=== PATIENT | female | born 1950 | race Caucasian/White ===

== ENCOUNTER → 2016-11-16 | Outpatient (REF) | payer MEDICARE | LOC: M LAB REF 16:58 | PROVIDERS: ATTEND Internal Medicine | DX: R07.9 Chest pain, unspecified (principal) ==

== ENCOUNTER → 2017-04-09 | Outpatient (REF) | payer MEDICARE | LOC: M LAB REF 17:32 | PROVIDERS: ATTEND Internal Medicine | DX: N18.9 Chronic kidney disease, unspecified (principal) ==

== ENCOUNTER → 2017-06-09 | Outpatient (REF) | payer MEDICARE | LOC: M LAB REF 12:29 | PROVIDERS: ATTEND Internal Medicine | DX: E78.5 Hyperlipidemia, unspecified (principal) ==

== ENCOUNTER → 2018-07-26 | Outpatient (REF) | payer MEDICARE ==
[2018-07-28 08:06] LABS: LDL DIRECT 149 mg/dL (0-99)
== END ==
LOC: M LAB REF 16:35
DX: E78.5 Hyperlipidemia, unspecified (principal)
CPT/HCPCS: 83721

== ENCOUNTER → 2018-12-19 | Outpatient (REF) | payer MEDICARE ==
[2018-12-19 18:40] LABS: PERCENT SATURATION 15.6 % (13.2-45.0)
== END ==
LOC: M LAB REF 18:00
PROVIDERS: ATTEND Internal Medicine
DX: D64.9 Anemia, unspecified (principal)

== ENCOUNTER → 2019-04-11 | Outpatient (CLI) | payer MEDICARE ==
[~2019-04-11] MED LIST: ASPI81TA26 PO; COQ150CH PO; CORE12.5 PO; CRES10TA PO; CVS400CA PO; GLIM4TAB PO; INVO100T PO; IRON325T9 PO; LASI40TA9 PO; LOSA50TA88 PO; METF500T13 PO; OCUV1CAP4 PO; PLAV1TAB2 PO; SPIR-10 PO; TOUJ300I2 SC; TRUL10IN SC
--- NOTE | 2019-04-11 18:17 | REP ---
BILATERAL LOWER EXTREMITY ARTERIAL DOPPLER ULTRASOUND: 04/11/2019. Clinical history: Pain and swelling, peripheral vascular disease. Findings: The ALFREDITO on the right is 0.65. On the left is 1.0. CLINIC CLERK is occluded on the right. Right lower extremity: PSV Phasicity Common femoral: 76.4 cm/S monophasic Profunda: 76 cm/S monophasic SFA proximal: 32.5 cm/S monophasic SFA mid: 14.9 cm/S monophasic SFA distal: 55.8 cm/S monophasic Popliteal: 34.2 cm/S monophasic TONY proximal: 27.3 cm/S monophasic Tibioperoneal trunk: 39.6 cm/S monophasic CLINIC CLERK proximal: 28.6 cm/S monophasic CLINIC CLERK distal: Occluded. AT distal: 34.7 cm/S monophasic Left lower extremity: PSV Phasicity Common femoral: 133.9 cm/S monophasic Profunda: 98.3 cm/S monophasic SFA proximal: 135.5 cm/S triphasic SFA mid: 161 cm/S triphasic SFA distal: 87.3 cm/S triphasic Popliteal: 116.8 cm/S triphasic TONY proximal: 66.1 cm/S triphasic Tibioperoneal trunk: 108.8 cm/S triphasic CLINIC CLERK proximal: 95.2 cm/S triphasic CLINIC CLERK distal: 66.3 cm/S. triphasic AT distal: 94.5 cm/S monophasic The right lower extremity is entirely monophasic, the right mid SFA/distal SFA are occluded with collateral revascularization noted. The distal CLINIC CLERK is also occluded. There is monophasic flow in the left common femoral artery with the distal SFA occluded with collateral revascularization. The common and external iliac arteries cannot be evaluated well due to body habitus and bowel gas. Electronically Signed by Jonathon Westbrook MD 04/11/2019 06:08 P
== END ==
LOC: M RAD 12:32
PROVIDERS: ATTEND Internal Medicine
DX: M79.606 Pain in leg, unspecified (principal); R22.43 Localized swelling, mass and lump, lower limb, bilateral; I70.213 Atherosclerosis of native arteries of extremities with intermittent claudication, bilateral legs

== ENCOUNTER → 2019-05-16 | Outpatient (CLI) | payer MEDICARE ==
[~2019-05-16] MED LIST changes: +CLOPIDOGREL 75 MG TAB As Ordered ONE; +HEPARIN 1,000 UNITS/ML 10ML VIAL (FOR RADIOLOGY& DIALYSIS ONLY) As Ordered ONE; +ISOVUE-300 61% 50ML VIAL (Q9967) As Ordered ONE; +LIDOCAINE 1% MDV 20ML VIAL As Ordered ONE; +MIDAZOLAM INJ 2 MG/2 ML VIAL (J2250) As Ordered ONE; +fentaNYL 100 MCG/2 ML INJECTION (J3010) As Ordered ONE
[2019-05-16 08:23] LABS: HEMATOCRIT 35.4 % (36.0-47.0); MEAN CORPUSCULAR HGB CONC 33.9 g/dl (32.0-36.5); MEAN CORPUSCULAR VOLUME 88.5 fl (80.0-96.0); PLATELET COUNT, AUTOMATED 182 10^3/uL (150-450); WHITE BLOOD COUNT 8.7 10^3/uL (4.0-10.0)
[2019-05-16 08:51] LABS: BILIRUBIN,TOTAL 0.4 MG/DL (0.2-1.0); CALCIUM LEVEL 9.9 MG/DL (8.8-10.2); CREATININE FOR GFR 1.8 MG/DL (0.55-1.30); GLOMERULAR FILTRATION RATE 29.5 (>39); POTASSIUM SERUM 4.3 MEQ/L (3.5-5.1); TOTAL PROTEIN 7.7 GM/DL (6.4-8.2)
--- NOTE | 2019-05-16 11:04 | ROOPDOC ---
[facility] Report Of Operation Report of Operation DATE OF PROCEDURE: 05/16/19 PREPROCEDURE DIAGNOSES: Atherosclerosis of the rosebud vessels with lifestyle limiting claudication POSTPROCEDURE DIAGNOSES: Same PROCEDURE: 1. Ultrasound-guided access left common femoral artery 2. Aortoiliofemoral arteriogram with right lower extremity runoff 3. Selection of distal popliteal artery and distal posterior tibial artery with arteriogram 4. Cross chronic total occlusion right superficial femoral artery and angioplasty right superficial femoral artery and proximal popliteal artery with 5 x 200 [place] balloon 5. Stenting of the superficial femoral artery with 6 x 100 and 6 x 150 Innova stents and post-dilation with 5 x 200 [place] balloon 6. Angioplasty proximal anterior tibial artery with 3 x 40 Gianni balloon 2 7. Cross chronic total occlusion right posterior tibial artery and angioplasty with 2 x 220 Gianni balloon 8. Completion arteriograms 9. Mynx closure left common femoral artery SURGEON: Brittany Dudley MD ANESTHESIA: 15 mL lidocaine local anesthesia. Moderate intravenous conscious sedation was supervised by Dr. Dudley. The patient was independently monitored by registered nurse assigned to the Department of radiology using automated blood pressure, EKG, and pulse oximetry. The detail conscious sedation record is probably started in the hospital information system. The following is the conscious sedation record: Start time 08:57, stop time 10:29, Versed 1.5 mg IV, fentanyl 25 g IV, heparin 5000 units IV. CONTRAST: 62 mL Isovue 300 INDICATION FOR PROCEDURE: Ms. Urena is a very pleasant 69-year-old patient with lifestyle limiting claudication and peripheral vascular disease. Her recent noninvasive arterial duplex revealed bilateral lower extremity PVD, worse on the right. Risks benefits and alternatives to an arteriogram with potential interv ention as well as sedation were explained at length to the patient and her . Informed consent was obtained. INTERPRETATION: 1. The aortoiliac segment are widely patent with brisk inflow to the lower extremities. 2. The bilateral common femoral arteries and profundus are widely patent at the origins. 3. In the right lower extremity, the SFA is patent proximally for several c entimeters, but quickly narrows and tapers and is occluded in the mid thigh with some trickle flow and the majority of the filling below Avlentin's canal is from collaterals. The popliteal proximally has some areas of focal stenosis of about 50%, but is not occluded. Distal to that, the popliteal is widely patent and runs off primarily through the anterior tibial and peroneal arteries. The proximal anterior tibial artery has a 70% focal stenosis and some 50% narrowing for about a centimeter distal to that. The rest of the anterior tibial artery appears widely patent. The peroneal artery is widely patent throughout its flow. The posterior tibial artery is patent proximally but then includes in the upper thigh and does not reconstitute distally until distal to the ankle through collateral circulation. 4. After crossing the occlusion in the right superficial femoral artery, we performed a quick arteriogram at the popliteal artery to confirm we were in the true lumen. Angioplasty significantly improved flow, but there were several areas of flow-limiting bulky plaque and a few small dissections. Additional angioplasty did not improve this, therefore the area was stented and post- dilated with widely patent flow following the stents. After angioplasty and stenting, no embolization, extravasation, or dissections were noted. 5. There was less than 20% residual stenosis at the origin of the anterior tibial artery after angioplasty. 6. After crossing the occlusion in the right posterior tibial artery, and confirming flow in the distal posterior tibial artery with a quick arteriogram at the ankle, there was widely patent flow throughout the posterior tibial artery after angioplasty. There was no dissection, embolization, or extravasation. 7. Following all interventions, the patient had in-line flow through the femoral vessels, popliteal vessels, and all 3 tibial vessels to the foot. 8. The Mynx closure device was deployed under fluoroscopic guidance with good hemostasis. PROCEDURE: The patient was brought to the angiographic suite in stable condition. She was placed supine on the fluoroscopic table. Her bilateral groins were prepped and draped in a sterile fashion. A timeout was performed. Sedation was administered without complication. Local anesthesia was administered to the skin and subcutaneous tissue over the left common femoral artery and a microneedle was used to access the artery under ultrasound guidance. A wire was passed through this access and the needle was removed. A small incision was made at the access site with the skin knife and a micro-sheath was placed over the wire using a Seldinger technique. The inner cannula and wire were removed and a Glidewire was advanced through the micro-sheath into the aorta under fluoroscopic guidance. We then removed the sheath was exchanged for a short 6 Uzbek sheath. This was flushed with saline. An Omni flushed catheter was advanced over the wire into the distal aorta and the wire was removed. An aortoiliofemoral arteriogram was performed and there was widely patent flow through the proximal segments. We then went up and over the bifurcation with the catheter in the Glidewire until the catheter was in the proximal common femoral artery. Arteriogram from this access showed widely patent flow through the common femoral artery and profunda, with good collateralization from the profunda to the distal SFA and popliteal artery, but the SFA although patent pro ximally, tapers down and includes in the mid thigh and is a long chronic total occlusion with some intermittent reconstitution from collateralization. There is some stenoses noted in the proximal popliteal artery as well, the distal popliteal artery however is widely patent. We then noted a stenosis at the origin of the anterior tibial artery and a chronic total occlusion of the ma jority of the distal posterior tibial artery. Following this, we exchanged her sheath for 45 cm destination 6 Uzbek sheath and flushed the sheath with saline. We then carefully navigated a Glidewire and Gleich cath through the occlusion in the superficial femoral artery. This took a bit of time, but we were eventually able to cross into the distal popliteal artery. A quick arteriogram from this access showed that we were in the true lumen and no distal embolization had occurred. We then angioplastied with a 5 x 200 [place] balloon along the length of the superficial femoral artery as well as the proximal popliteal artery for three-minute inflations. Following this, there was still some small areas of dissection as well as some bulky plaque that was flow-limiting. An additional three-minute angioplasty did not improve this, so we selected a 6 x 150 and 6 x 100 and Innova stents and these were placed from the origin of the SFA to the distal superficial femoral artery just proximal to Valentin's canal. They were postdilated with 5 x 200 [place] balloon, and there was widely patent flow following this with no distal embolization no extravasation and no ongoing dissection present. We then utilized the [place] cath and Glidewire to access the anterior tibial artery and exchanged through the Gleich cath for a 300 V 18 wire. Over the wire, we placed a 3 x 40 Gianni balloon and a three-minute in flation was performed, and following this there is still some residual stenosis so a second three-minute inflation was performed. Following this, there was less than 20% residual stenosis and no flow limitation into the anterior tibial artery. The distal artery was all widely patent. We then utilized the Gleich cath in the V 18 wire to access the posterior tibial artery. A bit of time was taken to cross through the chronic total occlusion and the posterior tibial artery but eventually I was able to cross to the ankle. I then performed a quick arteriogram from the ankle access to confirm I was in the true lumen, and then we did a three-minute inflation along the length of the posterior tibial artery 2 with a 2 x 2 120 Gianni balloon. Following this, there was widely patent 3 vessel runoff to the foot with no embolization, extravasation, or dissection noted. This concluded her procedure. We then exchange the sheath over a Glidewire for a short 6 Uzbek sheath in the left groin. This was flushed with saline. The wire was removed and a Mincks closure device was advanced into the common femoral artery. The Mincks was deployed with good hemostasis and pressure was held for 5 minutes following this and the patient was then taken to recovery in stable condition. ESTIMATED BLOOD LOSS: Approximately 5 mL. COMPLICATIONS: None PLAN: The patient will be monitored for 4 hours postprocedure and discharge home if stable condition after 4 hours of bedrest. She will have a Plavix in recovery, 75 mg, and then resume her home dose of Plavix in the morning. We will see her back for follow-up in clinic within a week. Depending on her clinical status, we may set up arteriogram for the left lower extremity, but due to creatinine of 1.8 today, we did not want to give additional contrast to do an arteriogram for the left lower extremity. The patient was hydrated pre-, during, and postprocedure with normal saline IV. BRITTANY DUDLEY MD May 16, 2019 11:04
[2019-05-16 14:41] VITALS: BP 142/66
== END ==
LOC: M IRPRO 07:56
PROVIDERS: ATTEND Surgery Vascular Surgery
DX: I70.211 Atherosclerosis of native arteries of extremities with intermittent claudication, right leg (principal)
CPT/HCPCS: 37226; 37228; 37232; 75716; 75774; 80053; 85027; 99152; 99153; C1725; C1760; C1769; C1876; C1887; C1894; J2250; J3010; Q9967

== ENCOUNTER → 2019-05-30 | Outpatient (CLI) | payer MEDICARE ==
[~2019-05-30] MED LIST changes: -CLOPIDOGREL 75 MG TAB As Ordered ONE; -HEPARIN 1,000 UNITS/ML 10ML VIAL (FOR RADIOLOGY& DIALYSIS ONLY) As Ordered ONE; -ISOVUE-300 61% 50ML VIAL (Q9967) As Ordered ONE; -LIDOCAINE 1% MDV 20ML VIAL As Ordered ONE; -MIDAZOLAM INJ 2 MG/2 ML VIAL (J2250) As Ordered ONE; -fentaNYL 100 MCG/2 ML INJECTION (J3010) As Ordered ONE
--- NOTE | 2019-05-30 16:17 | REP ---
BILATERAL LOWER EXTREMITY DUPLEX DOPPLER ARTERIAL ULTRASOUND: Real-time ultrasound evaluation and duplex Doppler interrogation of bilateral lower extremity arterial systems is performed. ALFREDITO right 1.2 and left 1.1. Biphasic and triphasic waveforms are seen diffusely bilaterally except for monophasic waveforms in the distal right anterior and posterior tibial arteries. Normal flow velocities are seen diffusely bilaterally. Phasicity in the proximal posterior tibial arteries cannot be determined due to edema. Right PSV Left PSV CONFERENCE ASSISTANT 110.5 cm/s 132 cm/s Profunda 45.4 cm/s 46.7 cm/s Proximal SFA 77.3 cm/s 107.4 cm/s Mid SFA 87.9 cm/s 95.7 cm/s Distal SFA 68.8 cm/s 76.5 cm/s Popliteal 62.4 cm/s 69.6 cm/s Proximal TONY 46.6 cm/s 45.4 cm/s Tibial peroneal trunk 98.7 cm/s 66.1 cm/s Proximal NAIL KEGGER 29.6 cm/s 35.9 cm/s Distal NAIL KEGGER 61.1 cm/s 58.8 cm/s Distal TONY 83.6 cm/s 75.3 cm/s Patent arterial stent is seen in the proximal to mid right superficial femoral artery. Electronically Signed by Sushant Olivas MD 05/31/2019 04:30 P
== END ==
LOC: M RAD 12:21
PROVIDERS: ATTEND Surgery Vascular Surgery
DX: I70.213 Atherosclerosis of native arteries of extremities with intermittent claudication, bilateral legs (principal)

== ENCOUNTER → 2019-09-28 | Outpatient (CLI) | payer MEDICARE ==
[~2019-09-28] MED LIST changes: -GLIM4TAB PO; +GLIM4TAB5 PO
--- NOTE | 2019-09-28 15:48 | REP ---
Bilateral lower extremity arterial Doppler ultrasound: Right lower extremity: Brachial artery peak systole: 160 mmHg Dorsalis pedis peak systole: 150 mmHg. MIDDLE SCHOOL FOOTBALL COACH peak systole: 150 mmHg. ALFREDITO: 0.9 Peak Systolic Phasicity Velocity PROJECT MANAGEMENT INSTRUCTOR 91.4 biphasic Profunda 89.4 triphasic SFA prox 169 triphasic SFA mid 241 triphasic SFA dist 191 triphasic Pop 65.9 triphasic TONY prox 48.1 triphasic Tib/P tr 77.9 triphasic MIDDLE SCHOOL FOOTBALL COACH pr 41.7 monophasic MIDDLE SCHOOL FOOTBALL COACH dst 191 monophasic TONY dst 400 monophasic Left lower extremity: Brachial artery peak systole: 165 mmHg. Dorsalis pedis peak systole: 155 mmHg. MIDDLE SCHOOL FOOTBALL COACH peak systole: 160 mmHg. ALFREDITO: 0.9. Peak Systolic Phasicity Velocity PROJECT MANAGEMENT INSTRUCTOR the 116 triphasic Profunda 61.6 biphasic SFA prox 151 triphasic SFA mid 186 triphasic SFA dist 108 triphasic Pop 101 triphasic TONY prox 48.1 triphasic Tib/P tr 101 biphasic MIDDLE SCHOOL FOOTBALL COACH pr 49.9 triphasic MIDDLE SCHOOL FOOTBALL COACH dst 78.5 biphasic TONY dst 76.5 biphasic There are multiple stenoses in the right SFA from proximal to distal, however, there are triphasic waveforms. There are triphasic waveforms from the right popliteal to the tibioperoneal trunk. There are monophasic waveforms in the right MIDDLE SCHOOL FOOTBALL COACH and TONY. The there are no significant stenoses on the left. There are biphasic/triphasic waveforms throughout. Electronically Signed by Sushant Vallejo MD 09/28/2019 03:39 P
== END ==
LOC: M RAD 13:28
PROVIDERS: ATTEND Surgery Vascular Surgery
DX: I70.213 Atherosclerosis of native arteries of extremities with intermittent claudication, bilateral legs (principal); I70.203 Unspecified atherosclerosis of native arteries of extremities, bilateral legs

== ENCOUNTER → 2019-10-16 | Outpatient (REF) | payer MEDICARE | LOC: M LAB REF 16:11 | PROVIDERS: ATTEND Internal Medicine | DX: R10.32 Left lower quadrant pain (principal) ==

== ENCOUNTER → 2020-04-18 | Outpatient (CLI) | payer MEDICARE ==
--- NOTE | 2020-05-21 07:18 | REP ---
BILATERAL LOWER EXREMITY ARTERIAL DOPPLER ULTRASOUND HISTORY: Unspecified atherosclerosis of the [place] arteries of the extremities. On 05/16/2019, the patient underwent angioplasty of the right superficial femoral artery and proximal popliteal artery, stenting of the right superficial femoral artery, angioplasty of the proximal anterior tibial artery. FINDINGS: Ankle brachial indices could not be accomplished due to noncompressible vessels. There is severe plaquing throughout bilaterally. Monophasic waveforms are noted throughout most of the right lower extremity and in the left lower extremity at and distal to the tibioperoneal trunk. Two stents can be seen in the right superficial femoral and mid superficial femoral artery and at the distal superficial femoral artery. Stenosis is visible at the right superficial femoral artery origin with a 3.421 velocity ratio. A 2.2 to 1 velocity ratio of stenosis is seen in the mid SFA on the right and another in the mid SFA on the left. PSV RIGHT (cm/s) PSV LEFT (cm/s) ELEVATOR REPAIRER HELPER 110/96 154 Profunda 84 104 Proximal SFA 200/326 136 Mid-SFA 172/372 150/301 Distal SFA 101 113 Popliteal 82 111 Proximal TONY 43 114 Tibioperoneal trunk 56 58 Proximal METER SETTER 47 57 Distal METER SETTER 89/144 123 Distal TONY 62 57 MTDD
== END ==
LOC: M RAD 10:31
PROVIDERS: ATTEND Physician Assistant
DX: I70.211 Atherosclerosis of native arteries of extremities with intermittent claudication, right leg (principal)

== ENCOUNTER → 2020-06-13 | Outpatient (REF) | payer MEDICARE ==
[2020-06-13 18:28] LABS: FERRITIN 291 NG/ML (8-252); IRON (FE) 64 UG/DL (50-170); PERCENT SATURATION 21.4 % (13.2-45.0); TOTAL IRON BINDING CAPACITY 299 UG/DL (250-450)
[2020-06-13 18:35] LABS: VITAMIN B12 LEVEL 718 PG/ML
[2020-06-13 18:36] LABS: FOLATE > 24.0 NG/ML
== END ==
LOC: M LAB REF 16:53
PROVIDERS: ATTEND Internal Medicine Nephrology
DX: D64.9 Anemia, unspecified (principal)

== ENCOUNTER → 2020-06-20 | Outpatient (CLI) | payer MEDICARE ==
--- NOTE | 2020-06-20 10:17 | REP ---
INDICATION: CKD STAGE 3B HEART FAILURE COMPARISON: 08/21/2019 TECHNIQUE: Real time srinivasan scale ultrasound examination using curved array transducer with color Doppler evaluation of the renal vasculature. FINDINGS: The bilateral kidneys are normal in contour, size, echogenicity, and reniform shape without hydronephrosis, nephrolithiasis, cystic or renal mass lesion. Increased central sinus fat and renal vascular calcifications are consistent with age-related renal disease. Color Doppler evaluation was performed and demonstrated normal renal arterial wave patterns. Peak aortic velocity: 69 centimeters/second RIGHT KIDNEY: Peak renal velocity: 75 centimeters/second Renal-aortic ratio: 1.1 Resistive indices: 0.75-0.83 Acceleration times: 0.02-0.04 LEFT KIDNEY: Peak renal velocity: 149 centimeters/second Renal-aortic ratio: 2.2 Resistive indices: 0.75-0.83 Acceleration times: 0.03-0.04 IMPRESSION: 1. Findings consistent with chronic medical renal disease as described above. 2. Elevated intrarenal resistive indices may be related to renovascular calcifications. 3. Minimal elevation to the left renal aortic ratio without meeting criteria for significant stenosis. <Electronically signed by Javier Person > 06/20/20 [id number]
== END ==
LOC: M RAD 08:58
PROVIDERS: ATTEND Internal Medicine Nephrology
DX: N18.32 Chronic kidney disease, stage 3b (principal); I50.9 Heart failure, unspecified; E11.22 Type 2 diabetes mellitus with diabetic chronic kidney disease; I13.0 Hypertensive heart and chronic kidney disease with heart failure and stage 1 through stage 4 chronic kidney disease, or unspecified chronic kidney disease

== ENCOUNTER → 2020-09-23 | Outpatient (CLI) | payer MEDICARE ==
[~2020-09-23] MED LIST changes: +INSUHUMDS SC; +VALS1TAB66 PO
== END ==
LOC: M IRPRO 08:04
PROVIDERS: ATTEND Surgery Vascular Surgery
DX: I70.203 Unspecified atherosclerosis of native arteries of extremities, bilateral legs (principal); Z53.09 Procedure and treatment not carried out because of other contraindication

== ENCOUNTER → 2020-10-21 | Outpatient (CLI) | payer MEDICARE ==
[~2020-10-21] MED LIST changes: +ISOVUE-300 61% 50ML VIAL As Ordered ONE; +LIDOCAINE 1% MDV 20ML VIAL As Ordered ONE; +MIDAZOLAM INJ 2MG/2ML VIAL (J2250 PER 1MG) As Ordered ONE; +fentaNYL 100 MCG/2 ML INJECTION (J3010) As Ordered ONE
[2020-10-21 08:02] LABS: HEMOGLOBIN 10.7 g/dl (12.0-15.5); MEAN CORPUSCULAR HEMOGLOBIN 28.8 pg (27.0-33.0); MEAN CORPUSCULAR HGB CONC 32.4 g/dl (32.0-36.5); MEAN CORPUSCULAR VOLUME 88.9 fl (80.0-96.0); PLATELET COUNT, AUTOMATED 157 10^3/uL (150-450); RED BLOOD COUNT 3.71 10^6/uL (4.00-5.40); WHITE BLOOD COUNT 8.1 10^3/uL (4.0-10.0)
[2020-10-21 08:51] LABS: CALCIUM LEVEL 8.9 MG/DL (8.8-10.2); CREATININE FOR GFR 1.66 MG/DL (0.55-1.30); GLOMERULAR FILTRATION RATE 32.3 (>39); POTASSIUM SERUM 3.9 MEQ/L (3.5-5.1)
--- NOTE | 2020-10-21 11:20 | ROOPDOC ---
[facility] Report Of Operation Report of Operation DATE OF PROCEDURE: 10/21/20 PREPROCEDURE DIAGNOSES: Atherosclerosis of the [place] arteries with worsening claudication right lower extremity POSTPROCEDURE DIAGNOSES: Same PROCEDURE: 1. Ultrasound-guided access left common femoral artery 2. Aortoiliofemoral arteriogram 3. Selection right common femoral and superficial femoral artery and right lower extremity runoff 4. Angioplasty right superficial femoral artery was 6 x 200 [place] balloon 5. Completion arteriograms 6. Mynx closure left common femoral artery SURGEON: Brittany Dudley MD ANESTHESIA: Local anesthesia 8 mL lidocaine. Moderate intravenous conscious sedation was supervised by Dr. Dudley. The patient was independently monitored by registered nurse assigned department of radiology using automated blood pressure, EKG, and pulse oximetry. The detailed sedation record is permanently stored in the hospital information system. The following is a brief sedation record: Start time 10:07, start time 10:43, Versed 1 mg IV, fentanyl 50 g IV, heparin 4000 units IV. CONTRAST: 28 mL Isovue-300 INDICATION FOR PROCEDURE: This is a very pleasant 70-year-old patient with atherosclerosis of the [place] arteries and a history of right SFA stents who has had worsening claudication developing in the right lower extremity, and arterial duplex suggests in-stent stenosis on the right. Risks benefits and alternatives to an arteriogram and potential intervention were explained to the patient she is agreeable to proceed. We also discussed the option to consider a right femoropopliteal bypass and status endovascular intervention. The patient is hopeful that she will not require open surgery and elected to go ahead with endovascular re-intervention. Informed consent was obtained. INTERPRETATION: 1. The distal aorta and common iliac arteries, hypogastric arteries and external iliac arteries bilaterally are widely patent. Mild disease present, but no significant stenosis noted. 2. The right common femoral artery is widely patent with good flow into the profunda. The stents in the SFA show intimal hyperplasia from the proximal stent at the origin of the SFA to the mid thigh. Distal to the stent, there is widely patent flow through the distal SFA and popliteal artery, with 3 vessel runoff to the foot. There is mild disease noted at the origin the anterior tibial artery but is not significantly flow-limiting. 3. After angioplasty of the right SFA, there is widely patent flow with no significant residual stenosis. No dissection, embolization, or extravasation are noted. There is rapid flow to the distal foot. REPORT OF OPERATION: The patient was brought to the angiographic suite in stable condition. Her bilateral groins were prepped and draped in sterile fashion. A timeout was performed. Sedation was administered without complication. Local anesthesia was administered to the skin and subcutaneous tissue over the left common femoral vein. A microneedle was used to access the vein under ultrasound guidance. A wire was passed through this access the needle was removed. A 4 [place] sheath was placed and flushed with saline. A Glidewire and flushing catheter were advanced into the distal aorta. Aortoiliofemoral arteriogram was performed, please see interpretation above. We then went up and over the bifurcation with the catheter in the Glidewire and selected the right common femoral artery and superficial femoral artery. Right lower extremity runoff was performed, please see interpretation above. We then advanced a Glidewire to the popliteal artery under fluoroscopic guidance. The sheath was exchanged for 6 x 45 cm destination sheath over the wire up and over the bifurcation. The sheath was flushed with saline. We then advanced a 6 x 200 [place] balloon from the origin of the SFA to the mid distal SFA and a three-minute inflations was performed. Following this, there is a marked improvement inflow with no significant residual stenosis noted. Completion arteriogram showed no dissection extravasation or embolization. We then exchanged the sheath for short 6 [place] sheath and flushed the sheath was saline. A Mynx closure device was deployed with good hemostasis. Pressure was held and sterile dressings were applied. The patient was taken to recovery in stable condition. She tolerated the procedure and the sedation well. ESTIMATED BLOOD LOSS: Approximately 5 mL. COMPLICATIONS: None. PLAN: Okay to resume home diet and medications. Okay to resume Plavix in the morning. Follow up in 1 week to check right access site. We appreciate the opportunity to participate in the care of this patient. BRITTANY DUDLEY MD Oct 21, 2020 11:20
[2020-10-21 14:55] VITALS: BP 168/82
== END ==
LOC: M IRPRO 07:07
PROVIDERS: ATTEND Surgery Vascular Surgery
DX: I70.211 Atherosclerosis of native arteries of extremities with intermittent claudication, right leg (principal); I12.9 Hypertensive chronic kidney disease with stage 1 through stage 4 chronic kidney disease, or unspecified chronic kidney disease; E11.22 Type 2 diabetes mellitus with diabetic chronic kidney disease; E11.59 Type 2 diabetes mellitus with other circulatory complications; E78.00 Pure hypercholesterolemia, unspecified; N18.4 Chronic kidney disease, stage 4 (severe); Z79.82 Long term (current) use of aspirin; Z79.899 Other long term (current) drug therapy
CPT/HCPCS: 37224; 75630; 75774; 80048; 85027; 99152; 99153; C1725; C1760; C1769; C1887; C1894; J1644; J2250; J3010; Q9967

== ENCOUNTER → 2020-11-28 | Outpatient (CLI) | payer MEDICARE ==
[~2020-11-28] MED LIST changes: -ISOVUE-300 61% 50ML VIAL As Ordered ONE; -LIDOCAINE 1% MDV 20ML VIAL As Ordered ONE; -MIDAZOLAM INJ 2MG/2ML VIAL (J2250 PER 1MG) As Ordered ONE; -fentaNYL 100 MCG/2 ML INJECTION (J3010) As Ordered ONE
--- NOTE | 2020-11-28 11:50 | REP ---
INDICATION: ATHEROSCLEROSIS. COMPARISON: None. 04/18/2020. TECHNIQUE: Duplex ultrasound of the arterial systems in the lower extremities bilaterally. FINDINGS: Right lower extremity: Brachial peak systole: NA mmHg Dorsalis pedis peak systole: NA, noncompressible mmHg GRADING MACHINE OPERATOR peak systole: NA, noncompressible mmHg ALFREDITO: NA GLASS FORMING ENGINEER: 124 velocity, triphasic phasicity Profunda: 74 velocity, biphasic phasicity SFA prox: 127 velocity, triphasic phasicity SFA mid: 139 velocity, triphasic phasicity SFA dist: 142 velocity, triphasic phasicity Pop: 79 velocity, triphasic phasicity TONY prox: 55 velocity, monophasic phasicity Tib/P tr: 34 velocity, biphasic phasicity GRADING MACHINE OPERATOR pr: 50 velocity, 8 monophasic phasicity GRADING MACHINE OPERATOR dst: 67 velocity, monophasic phasicity TONY dst: 102 velocity, monophasic phasicity Left lower extremity: Brachial peak systole: NA mmHg Dorsalis pedis peak systole: NA, noncompressible mmHg GRADING MACHINE OPERATOR peak systole: NA, noncompressible mmHg ALFREDITO: NA GLASS FORMING ENGINEER: 159 velocity, biphasic phasicity Profunda: 76 velocity, biphasic phasicity SFA prox: 107 velocity, triphasic phasicity SFA mid: 122 velocity, triphasic phasicity SFA dist: 135 velocity, triphasic phasicity Pop: 93 velocity, triphasic phasicity TONY prox: 86 velocity, triphasic phasicity Tib/P tr: 85 velocity, triphasic phasicity GRADING MACHINE OPERATOR pr: 63 velocity, monophasic phasicity GRADING MACHINE OPERATOR dst: 92 velocity, monophasic phasicity TONY dst: 95 velocity, monophasic phasicity IMPRESSION: Right lower extremity: There are triphasic/biphasic waveforms from the GLASS FORMING ENGINEER to the popliteal artery-tibial/peroneal trunk. Monophasic waveform is only noted at the GRADING MACHINE OPERATOR and at the TONY. Stents are identified at the SFA origin to the proximal/mid SFA, and at the mid-distal SFA. No significant stenosis is identified at this time. Left lower extremity: There is mild atheromatous plaque. There are triphasic/biphasic waveforms throughout except for monophasic waveforms only at the GRADING MACHINE OPERATOR and TONY. No significant stenosis is identified at this time. <Electronically signed by Sushant Vallejo > 11/28/20 114
== END ==
LOC: M RAD 09:42
PROVIDERS: ATTEND Physician Assistant
DX: I70.213 Atherosclerosis of native arteries of extremities with intermittent claudication, bilateral legs (principal)

== ENCOUNTER → 2021-03-10 | Outpatient (REF) | payer MEDICARE | LOC: M LAB REF 17:10 | PROVIDERS: ATTEND Internal Medicine Nephrology | DX: N18.32 Chronic kidney disease, stage 3b (principal) ==

== ENCOUNTER 2021-04-20 13:47 | Inpatient (IN) | payer MEDICARE ==
[~2021-04-20] VITALS: Ht 162.6 cm; Wt 88.0 kg
[2021-04-20] MEDS: dexameTHASONE 4 MG/ML 1ML VIAL (J1100 PER 1MG) IV SCH (09:00)
[~2021-04-20 13:47] MED LIST changes: +ASPIRIN 81MG ENTERIC TABLET PO SCH
--- NOTE | 2021-04-20 14:32 | REP ---
INDICATION: DYSPNEA/COUGH COMPARISON: None. TECHNIQUE: Portable AP view of the chest FINDINGS: Mediastinum and cardiac silhouette are grossly normal. Pacemaker appears to be in satisfactory position. The lung garcia demonstrate diffuse subtle airspace disease suggesting multifocal pneumonia and correlation is recommended. No effusion. No pneumothorax. COVID related lung disease cannot be excluded and requires correlation. IMPRESSION: Subtle scattered air airspace disease is suspected. COVID related lung disease cannot be excluded and requires correlation. <Electronically signed by Javier Person > 04/20/21 1962
[2021-04-20 14:41] LABS: BASO % 0.2 % (0.0-1.0); HEMOGLOBIN 10.2 g/dl (12.0-15.5); LYMPH # 1.3 10^3/uL (1.5-5.0); LYMPH % 11.8 % (24.0-44.0); MEAN CORPUSCULAR HEMOGLOBIN 29.3 pg (27.0-33.0); MEAN CORPUSCULAR VOLUME 86.2 fl (80.0-96.0); MONO # 0.8 10^3/uL (0.0-0.8); MONO % 7.6 % (2.0-8.0); NEUTROPHILS # 8.4 10^3/uL (1.5-8.5); NEUTROPHILS % 78.2 % (36.0-66.0); PLATELET COUNT, AUTOMATED 248 10^3/uL (150-450); RED BLOOD COUNT 3.48 10^6/uL (4.00-5.40); WHITE BLOOD COUNT 10.7 10^3/uL (4.0-10.0)
[2021-04-20 15:23] LABS: ALBUMIN 3.3 GM/DL (3.2-5.2); ALT/SGPT 30 U/L (12-78); BILIRUBIN,DIRECT 0.2 MG/DL (0.0-0.2); BILIRUBIN,TOTAL 0.8 MG/DL (0.2-1.0); BLOOD UREA NITROGEN 80 MG/DL (7-18); CALCIUM LEVEL 8.4 MG/DL (8.8-10.2); CARBON DIOXIDE LEVEL 19 MEQ/L (21-32); CHLORIDE LEVEL 107 MEQ/L (98-107); CK-MB VALUE MASS 1.9 NG/ML (<3.6); CPK CREATINE PHOSPHOKINASE 153 U/L (26-192); CREATININE FOR GFR 2.28 MG/DL (0.55-1.30); GLOMERULAR FILTRATION RATE 22.4 (>39); GLUCOSE, FASTING 221 MG/DL (70-100); MB/CK RELATIVE INDEX 1.24 (< OR =4); NT-PRO BNP 908 PG/ML (<125); POTASSIUM SERUM 4.8 MEQ/L (3.5-5.1); SODIUM LEVEL 137 MEQ/L (136-145); TOTAL PROTEIN 7.6 GM/DL (6.4-8.2); TROPONIN I < 0.02 NG/ML (< 0.10)
[2021-04-20] MEDS ORDERED: NS 1,000 ML IV ONE (15:25)
[2021-04-20 15:42] LABS: RSV AMPLIFICATION NEGATIVE (NEGATIVE)
[2021-04-20] MEDS ORDERED: VALS40TA9 PO (16:41)
[2021-04-20] MEDS ORDERED: HUMA50IN4 SC (16:41)
[2021-04-20] MEDS ORDERED: SPIR-10 PO (17:21)
[2021-04-20] MEDS ORDERED: MAGN400T2 PO (17:21)
[2021-04-20] MEDS ORDERED: LATA0.0015 OU (17:21)
[2021-04-20] MEDS ORDERED: DORZ2SOL5 OU (17:21)
[2021-04-20] MEDS ORDERED: CARV6.25 PO (17:21)
[2021-04-20 18:04] LABS: BASO % 0.3 % (0.0-1.0); HEMATOCRIT 28.7 % (36.0-47.0); HEMOGLOBIN 9.5 g/dl (12.0-15.5); LYMPH # 1.4 10^3/uL (1.5-5.0); LYMPH % 15.6 % (24.0-44.0); MEAN CORPUSCULAR HEMOGLOBIN 29.3 pg (27.0-33.0); MEAN CORPUSCULAR HGB CONC 33.1 g/dl (32.0-36.5); MEAN CORPUSCULAR VOLUME 88.6 fl (80.0-96.0); MONO # 0.6 10^3/uL (0.0-0.8); MONO % 7.1 % (2.0-8.0); NEUTROPHILS # 6.5 10^3/uL (1.5-8.5); NEUTROPHILS % 75.2 % (36.0-66.0); PLATELET COUNT, AUTOMATED 240 10^3/uL (150-450); RED BLOOD COUNT 3.24 10^6/uL (4.00-5.40); WHITE BLOOD COUNT 8.7 10^3/uL (4.0-10.0)
[2021-04-20 18:14] LABS: INR 1.26; PROTHROMBIN TIME 16.2 SECONDS (12.7-14.5)
[2021-04-20 18:15] LABS: FIBRINOGEN 685 MG/DL (268-480); PARTIAL THROMBOPLASTIN TIME 29.2 SECONDS (25.9-37.0)
[2021-04-20] MEDS ORDERED: HOME MED LIST COMPLETE! XX SCH (18:20)
[2021-04-20 18:21] LABS: ALT/SGPT 29 U/L (12-78); BILIRUBIN,DIRECT 0.2 MG/DL (0.0-0.2); BILIRUBIN,TOTAL 0.6 MG/DL (0.2-1.0); BLOOD UREA NITROGEN 81 MG/DL (7-18); CALCIUM LEVEL 8.6 MG/DL (8.8-10.2); CARBON DIOXIDE LEVEL 20 MEQ/L (21-32); CHLORIDE LEVEL 109 MEQ/L (98-107); CPK CREATINE PHOSPHOKINASE 154 U/L (26-192); CREATININE FOR GFR 2.11 MG/DL (0.55-1.30); FERRITIN 1669 NG/ML (8-252); GLOMERULAR FILTRATION RATE 24.4 (>39); GLUCOSE, FASTING 215 MG/DL (70-100); LDH LACTATE DEHYDROGENASE 526 U/L (84-246); MAGNESIUM LEVEL 2.7 MG/DL (1.8-2.4); NT-PRO BNP 885 PG/ML (<125); POTASSIUM SERUM 4.9 MEQ/L (3.5-5.1); SODIUM LEVEL 137 MEQ/L (136-145); TOTAL PROTEIN 7.2 GM/DL (6.4-8.2); TROPONIN I < 0.02 NG/ML (< 0.10)
[2021-04-20] MEDS ORDERED: DEXTROSE 50% 50 ML SYRINGE IV PRN (18:55)
[2021-04-20] MEDS ORDERED: GLUCAGON INJ 1MG VIAL SC PRN (18:55)
[2021-04-20] MEDS ORDERED: GLUCOSE 4GM CHEW TABLET PO PRN (18:55)
--- NOTE | 2021-04-20 19:16 | HPEPDOC ---
[facility] Medical History & Physical Date of Admission Apr 20, 2021 Date of Service: Apr 20, 2021 Primary Care Physician: PARAS COREY DO Attending Physician: BARBARA ELDRIDGE DO History and Physical CHIEF COMPLAINT: Shortness of breath HISTORY OF PRESENT ILLNESS: Patient reports that she was visited by her sister and [id number] last Wednesday (6 days ago) and then on the following day began to feel shortness of breath, fatigue, sore throat, and has progressively gotten worse since that time. The patient was vaccinated in September/October of this year, however her sister and [id number] were not vaccinated. A few days ago her sister and [id number], who also were feeling ill, tested positive for COVID-19. Because the patient was feeling significantly worse today she decided to present to the emergency department for further evaluation, and she also was discovered to be positive for COVID-19 despite having been vaccinated. She is 71 years old, has multiple comorbidities, and his requiring oxygen supplementation at 2-3 L to maintain saturations above 90%, therefore she will be admitted to the hospital. CODE STATUS: Full code ALLERGIES: [employer] it is listed that she has an allergy to insulin, but when I asked the patient she is confused by the question, and reports that she takes insulin, therefore she is not allergic to it. PAST MEDICAL HISTORY: Hypertension Diabetes mellitus type 2 Iron deficiency anemia Hypercholesterolemia Preglaucoma History of myocardial infarction, first one at 38 years old PAST SURGICAL HISTORY: Cardiac stent placement 2011 CABG x3 2017 Pacemaker placement 2017 Bilateral carpal tunnel release multiple years ago Appendectomy when she was 4 years old SOCIAL HISTORY: Never smoker. Drinks alcohol only on rare social occasions. Denies illicit drug use FAMILY HISTORY: Multiple members of her family have diabetes, hypertension, and myocardial infarction's at young age (in their 40s) REVIEW OF SYSTEMS: Constitutional: Patient denies fevers, chills, night sweats, recent weight gain/loss. HEENT: Patient admits to having a sore throat, but she is able to chew and eat food. Cardiovascular: Patient denies chest discomfort/pain, palpitations, orthopnea, edema of the extremities, claudication. Respiratory: Patient admits to dyspnea, nonproductive cough, denies hemoptysis, sputum production. Gastrointestinal: Patient admits to diarrhea for the past few days. Denies nausea, vomiting, constipation, abdominal pain, melena, hematochezia, hematemesis, jaundice. PHYSICAL EXAMINATION: General: Awake, alert, now that she has oxygen on she does not appear to be in acute distress, nor she using any accessory muscles, but she certainly becomes winded even with having a conversation. HEENT: Head normocephalic atraumatic, conjunctiva are pink, sclera are nonicteric, buccal mucosa is pink and moist with no lesions in the oropharynx. Hearing is grossly intact to conversation. Respiratory: Scattered mild rales throughout. Perhaps very mild wheezing throughout as well. Cardiovascular: Regular rate and rhythm, with no rubs, gallops, or murmur. Abdomen: Soft, nontender, nondistended, no hepatosplenomegaly appreciated. Bowel sounds present. Extremities: 2+ pulses in the radial and dorsalis pedis bilaterally. No evidence of clubbing or cyanosis. ELECTROCARDIOGRAM: Paced rhythm IMAGING: Chest x-ray shows patchy multifocal pneumonia consistent with COVID-19 disease ASSESSMENT: COVID-19 pneumonia Hypoxia Acute kidney injury Prerenal azotemia Dehydration Diabetes mellitus type 2 Coronary artery disease Iron deficiency anemia Preglaucoma Hyperlipidemia Hypertension DVT prophylaxis with Lovenox PLAN: -Will admit the patient to the [facility] [place] Covid unit. -Oxygen supplementation as needed to maintain saturations above 90% -Decadron 6 mg IV daily for 10 days -Will ask pulmonology to order Baricinitib -Patient is already on aspirin 81 mg daily -Baseline EKG was already ordered in the emergency department, paced rhythm -The patient has significant prerenal azotemia, likely secondary to dehydration, causing acute kidney injury, therefore her home dose of valsartan, spironolactone, and furosemide will be held, she was already given 1 L bolus of normal saline in the ED, and will continue at 125 mL/h. And reevaluate labs in the morning. Given her significant cardiac history, we do not want to fluid overload the patient. -Otherwise, we will continue with her home dose of aspirin, carvedilol, Plavix, eyedrops, Crestor, and magnesium supplementation. -We will put her on a consistent carbohydrate diet and use sliding scale insulin while inpatient. Will hold all the remainder of her home diabetic medications. Vital Signs Vital Signs Date Time Temp Pulse Resp B/P (MAP) Pulse Ox O2 Delivery O2 Flow Rate FiO2 04/20/21 18:00 98.7 66 24 124/61 (82) 99 04/20/21 15:00 Nasal Cannula 3.0 Laboratory Data Labs 24H Laboratory Tests 2 04/20/21 14:15: Immature Granulocyte % (Auto) 2.2, Neutrophils (%) (Auto) 78.2H, Lymphocytes (%) (Auto) 11.8L, Monocytes (%) (Auto) 7.6, Eosinophils (%) (Auto) 0.0, Basophils (%) (Auto) 0.2, Neutrophils # (Auto) 8.4, Lymphocytes # (Auto) 1.3L, Monocytes # (Auto) 0.8, Eosinophils # (Auto) 0.0, Basophils # (Auto) 0.0, Nucleated Red Blood Cells % (auto) 0.0, Anion Gap 11, Glomerular Filtration Rate 22.4L, Lactic Acid Level 1.6, Calcium Level 8.4L, Total Bilirubin 0.8, Direct Bilirubin 0.2, Aspartate Amino Transf (AST/SGOT) 32, Alanine Aminotransferase (ALT/SGPT) 30, Alkaline Phosphatase 48, Total Creatine Kinase 153, Creatine Kinase MB 1.9, Creatine Kinase MB Relative Index 1.24, Troponin I < 0.02, GU-Yel-Q-Type Natriuretic Peptide 908H, Total Protein 7.6, Albumin 3.3, Albumin/Globulin Ratio 0.8L 04/20/21 14:18: Coronavirus (COVID-19)(PCR) POSITIVEA, Influenza Type A (RT-PCR) NEGATIVE, Influenza Type B (RT-PCR) NEGATIVE, Respiratory Syncytial Virus (PCR) NEGATIVE 04/20/21 17:52: Immature Granulocyte % (Auto) 1.8, Neutrophils (%) (Auto) 75.2H, Lymphocytes (%) (Auto) 15.6L, Monocytes (%) (Auto) 7.1, Eosinophils (%) (Auto) 0.0, Basophils (%) (Auto) 0.3, Neutrophils # (Auto) 6.5, Lymphocytes # (Auto) 1.4L, Monocytes # (Auto) 0.6, Eosinophils # (Auto) 0.0, Basophils # (Auto) 0.0, Nucleated Red Blood Cells % (auto) 0.0, Anion Gap 8, Glomerular Filtration Rate 24.4L, Calcium Level 8.6L, Total Bilirubin 0.6, Direct Bilirubin 0.2, Aspartate Amino Transf (AST/SGOT) 28, Alanine Aminotransferase (ALT/SGPT) 29, Alkaline Phosphatase 48, Total Creatine Kinase 154, Troponin I < 0.02, IY-Hku-B-Type Natriuretic Peptide 885H, Total Protein 7.2, Albumin 3.0L, Albumin/Globulin Ratio 0.7L, Prothrombin Time 16.2H, Prothromb Time International Ratio 1.26, Activated Partial Thromboplast Time 29.2, Fibrinogen 685H, Magnesium Level 2.7H, Ferritin 1669H, Lactate Dehydrogenase 526H, C-Reactive Protein, Quantitative 11.30H CBC/BMP Laboratory Tests 04/20/21 14:15 04/20/21 17:52 Microbiology Microbiology 04/20/21 Blood Culture, Received Pending 04/20/21 Blood Culture, Received Pending Home Medications Scheduled Aspirin (Aspirin EC) 81 Mg Tablet.dr, 81 MG PO DAILY Carvedilol (Carvedilol) 6.25 Mg Tablet, 6.25 MG PO BID Clopidogrel Bisulfate (Plavix) 75 Mg Tablet, 75 MG PO DAILY Dorzolamide HCl/Timolol Maleat (Dorzolamide-Timolol Eye Drops) 10 Ml Drops, 1 DROP OU BID Dulaglutide (Trulicity) 0.75 Mg/0.5 Ml Pen.injctr, 1.5 MG SC 1XWK Ferrous Sulfate (Iron) 325 Mg Tablet, 325 MG PO DAILY Furosemide (Lasix) 40 Mg Tablet, 40 MG PO DAILY Insulin Glargine,Hum.rec.anlog (Toudenny Mcneal Solostar) 300 Unit/1 Ml Insuln.pen, 110 UNIT SC DAILY Insulin Lispro (Humalog Kwikpen U-200) 200 Unit/1 Ml Insuln.pen, 10 UNITS SC QPM Latanoprost/Pf (Latanoprost 0.005% Eye Drop) 7.5 Ml Drops, 1 DROP OU QHS Lutein/Zeaxanthin (Ocuvite Lutein 25-5 mg Softgel) 1 Each Capsule, 1 CAP PO DAILY Magnesium Oxide (Magnesium Oxide) 400 Mg Tablet, 400 MG PO DAILY Spironolactone (Spironolactone) 25 Mg Tablet, 25 MG PO DAILY Ubidecarenone (Coq10) 50 Mg Tab.chew, 100 MG PO DAILY Valsartan (Valsartan) 40 Mg Tablet, 40 MG PO DAILY Allergies Coded Allergies: acarbose (Verified Allergy, Severe, SWELLING, 05/12/19) pioglitazone (Verified Allergy, Severe, SWELLING, 05/12/19) Sulfa (Sulfonamide Antibiotics) (Verified Allergy, Intermediate, 05/12/19) insulin aspart (Verified Allergy, Intermediate, RASH, 05/12/19) insulin aspart protamine human (Verified Allergy, Intermediate, RASH, 05/12/19) insulin detemir (Verified Allergy, Mild, RASH, 05/12/19) A-FIB/CHADSVASC A-FIB History Current/History of A-Fib/PAF?: No BARBARA ELDRIDGE DO Apr 20, 2021 19:15
[2021-04-20 19:19] LABS: D-DIMER QUANT > 4000 ng/ml (<500)
--- NOTE | 2021-04-20 19:26 | ECGEPIP ---
[facility] - ED Test Date: 2021-04-20 Pat Name: ANABELA SARAH Department: Room: - Gender: Female Software Trainer: XAVIER : [id number] Requested By: Manas Underwood Order Number: [id number] Reading MD: Fidelina Davis Measurements Intervals [place] Rate: 76 P: 31 MI: 128 QRS: 229 QRSD: 126 T: 100 QT: 450 QTc: 506 Interpretive Statements Atrial-sensed ventricular-paced rhythm Biventricular pacemaker detected underlying sinus rhythm No prior Electronically Signed on 04-20-2021 19:26:07 EDT by Fidelina Davis
[2021-04-20] MEDS ORDERED: ROSU10TA6 PO (19:27)
[2021-04-20] MEDS: NS 1,000 ML IV SCH ×2 (19:30→22:09)
[2021-04-20] MEDS ORDERED: REMDESIVIR 200 MG in NS 250 ML IV ONE (20:10)
[2021-04-20] MEDS: HumaLOG INSULIN (NovoLOG) PER UNIT SC SCH (21:00)
[2021-04-20 21:30] VITALS: BP 168/67
[2021-04-20] MEDS: ENOXAPARIN 40MG/0.4ML SYRINGE (J1650 PER 10MG) SC SCH (22:09)
[2021-04-20] MEDS ORDERED: SODIUM CHLORIDE 0.9% INJ 10 ML SYR IV ONE (22:10)
[2021-04-21] VITALS (8 sets, daily range): BP systolic 137–148; BP diastolic 63–65; O2SAT 93–97
[2021-04-21] MEDS: COSOPT OCUMETER PLUS 10ML (DORZOLAMIDE/TIMOLOL) OU SCH ×3 (00:09→21:00)
[2021-04-21] MEDS: REMDESIVIR 100 MG in NS 250 ML IV SCH ×2 (00:10→23:29)
[2021-04-21] MEDS: CARVedilol 6.25 MG TAB PO SCH ×3 (00:12→22:15)
[2021-04-21] MEDS: SODIUM CHLORIDE 0.9% INJ 10 ML SYR IV SCH ×2 (00:12→23:30)
[2021-04-21] MEDS ORDERED: COMBIVENT RESPIMAT 100-20MCG INHALER 4GM INH PRN (04:20)
[2021-04-21] MEDS ORDERED: SPIRONOLACTONE 25 MG TAB PO SCH (09:00)
[2021-04-21] MEDS ORDERED: VALSARTAN 80 MG TAB (DIOVAN) PO SCH (09:00)
[2021-04-21] MEDS ORDERED: FUROSEMIDE 40 MG TAB PO SCH (09:00)
[2021-04-21] MEDS ORDERED: FERROUS SULFATE 325MG TAB PO SCH (09:00)
[2021-04-21] MEDS: ROSUVASTATIN 10 MG TAB (CRESTOR) PO SCH (09:01)
[2021-04-21] MEDS: CLOPIDOGREL 75 MG TAB PO SCH (09:01)
[2021-04-21] MEDS: dexameTHASONE 4 MG/ML 1ML VIAL (J1100 PER 1MG) IV SCH (09:01)
[2021-04-21] MEDS: MAGNESIUM OXIDE 400MG TAB (MAG-OX) PO SCH (09:01)
[2021-04-21] MEDS: ASPIRIN 81MG ENTERIC TABLET PO SCH (09:01)
[2021-04-21] MEDS: HumaLOG INSULIN (NovoLOG) PER UNIT SC SCH ×4 (09:02→22:16)
[2021-04-21 09:30] LABS: BASO % 0.1 % (0.0-1.0); HEMATOCRIT 28.5 % (36.0-47.0); HEMOGLOBIN 9.6 g/dl (12.0-15.5); LYMPH # 0.7 10^3/uL (1.5-5.0); LYMPH % 7.7 % (24.0-44.0); MEAN CORPUSCULAR HEMOGLOBIN 29.7 pg (27.0-33.0); MEAN CORPUSCULAR HGB CONC 33.7 g/dl (32.0-36.5); MEAN CORPUSCULAR VOLUME 88.2 fl (80.0-96.0); MONO # 0.2 10^3/uL (0.0-0.8); MONO % 2.4 % (2.0-8.0); NEUTROPHILS # 8.4 10^3/uL (1.5-8.5); NEUTROPHILS % 87.6 % (36.0-66.0); PLATELET COUNT, AUTOMATED 243 10^3/uL (150-450); RED BLOOD COUNT 3.23 10^6/uL (4.00-5.40); WHITE BLOOD COUNT 9.5 10^3/uL (4.0-10.0)
[2021-04-21 09:54] LABS: ALBUMIN 2.8 GM/DL (3.2-5.2); BILIRUBIN,DIRECT 0.2 MG/DL (0.0-0.2); BILIRUBIN,TOTAL 0.5 MG/DL (0.2-1.0); CALCIUM LEVEL 8.8 MG/DL (8.8-10.2); CREATININE FOR GFR 1.96 MG/DL (0.55-1.30); GLOMERULAR FILTRATION RATE 26.6 (>39); MAGNESIUM LEVEL 2.8 MG/DL (1.8-2.4); POTASSIUM SERUM 5.1 MEQ/L (3.5-5.1); TOTAL PROTEIN 7.8 GM/DL (6.4-8.2)
[2021-04-21] MEDS: NS 1,000 ML IV SCH ×2 (12:17→23:30)
--- NOTE | 2021-04-21 18:00 | IPNPDOC ---
Date Seen The patient was seen on 04/21/21. Progress Note SUBJECTIVE: Patient is a 71-year-old female was admitted in the hospital with COVID pneumonia. Patient states that she is doing well today but still feeling shortness of breath, fatigue and sore throat. When seen today, patient was very cold and shivering; after covering with blanket patient felt much better. She was seen eating toast and orange juice. She states that she has been having diarrhea for the past week and have been trying to drink Pedialyte and taking Imodium to feel better. OBJECTIVE PHYSICAL EXAMINATION: VITAL SIGNS: Please see below. GENERAL: Awake and alert and oriented, in no acute distress HEENT: Head normocephalic atraumatic, moist mucous membranes CARDIOVASCULAR: Regular rate and rhythm; no rubs, gallops or murmurs appreciated RESPIRATORY: Scattered Rales and crackles heard bilaterally ABDOMINAL: Bowel sounds normal; soft nondistended, no tenderness to palpation EXTREMITIES: 2+ pulses in dorsalis pedis bilaterally; no edema noted in lower extremities bilaterally LABORATORY DATA, IMAGING STUDIES, MICROBIOLOGY: Please see below. Echocardiogram: . DVT prophylaxis ordered?: Yes; Lovenox ASSESSMENT AND PLAN: This is a 71-year-old female presenting with shortness of breath, found to be hypoxic and testing positive for MARTA-COV2 co ncerning for COVID pneumonia. PROBLEMS: 1. COVID pneumonia -Given her comorbidities, pt was given loading dose of Remdesivir 200mg and will continue Remdesivir 100mg for the next 5 days (today is day 1/5). Will continue IV Decadron 6 mg for 10 days (day 2 of treatment). Oxygen supplementation as needed to ensure saturations above 90%. 2. Prerenal azotemia w/ acute kidney injury -Possibly due to diarrhea for the past week causing dehydration; will continue IV hydration with NS @ 75/ml per hour. As she has a significant cardiac history, we will exercise precautions to not fluid overload the patient. We will continue monitoring her kidney functions with AM labs. 3. CAD with past history of OR at 38 years old -Will hold her home dose of valsartan, spironolactone, and furosemide as patient is currently in prerenal azotemia with acute kidney injury. -Will continue her home dose of aspirin, carvedilol and Plavix. 4. Diabetes mellitus type 2 -We will continue with consistent carbohydrate diet; basal insulin Levemir 44 units at night as well as sliding scale insulin while inpatient. -Hold home diabetic medications. DISPOSITION: pending clinical improvement. VS, [facility]&O, [facility] Vital Signs/I&O Vital Signs Date Time Temp Pulse Resp B/P (MAP) Pulse Ox O2 Delivery O2 Flow Rate FiO2 04/21/21 14:00 98.3 64 18 137/63 (87) 97 Nasal Cannula 6.0 I&O- Last 24 Hours up to 6 AM 04/21/21 06:00 Intake Total 2020 ml Output Total 500 ml Balance 1520 ml Laboratory Data 24H LABS Laboratory Tests 2 04/20/21 17:52: Immature Granulocyte % (Auto) 1.8, Neutrophils (%) (Auto) 75.2H, Lymphocytes (%) (Auto) 15.6L, Monocytes (%) (Auto) 7.1, Eosinophils (%) (Auto) 0.0, Basophils (%) (Auto) 0.3, Neutrophils # (Auto) 6.5, Lymphocytes # (Auto) 1.4L, Monocytes # (Auto) 0.6, Eosinophils # (Auto) 0.0, Basophils # (Auto) 0.0, Nucleated Red Blood Cells % (auto) 0.0, Prothrombin Time 16.2H, Prothromb Time International Ratio 1.26, Activated Partial Thromboplast Time 29.2, Fibrinogen 685H, D-Dimer, Quantitative > 4000H, Anion Gap 8, Glomerular Filtration Rate 24.4L, Calcium Level 8.6L, Magnesium Level 2.7H, Ferritin 1669H, Total Bilirubin 0.6, Direct Bilirubin 0.2, Aspartate Amino Transf (AST/SGOT) 28, Alanine Aminotransferase (ALT/SGPT) 29, Alkaline Phosphatase 48, Lactate Dehydrogenase 526H, Total Creatine Kinase 154, Troponin I < 0.02, C-Reactive Protein, Quantitative 11.30H, CR-Nzi-B-Type Natriuretic Peptide 885H, Total Protein 7.2, Albumin 3.0L, Albumin/Globulin Ratio 0.7L, Procalcitonin <0.05 04/20/21 21:38: Bedside Glucose (Misc Panel) 215H 04/21/21 07:52: Bedside Glucose (Misc Panel) 281H 04/21/21 09:08: Immature Granulocyte % (Auto) 2.2, Neutrophils (%) (Auto) 87.6H, Lymphocytes (%) (Auto) 7.7L, Monocytes (%) (Auto) 2.4, Eosinophils (%) (Auto) 0.0, Basophils (%) (Auto) 0.1, Neutrophils # (Auto) 8.4, Lymphocytes # (Auto) 0.7L, Monocytes # (Auto) 0.2, Eosinophils # (Auto) 0.0, Basophils # (Auto) 0.0, Nucleated Red Blood Cells % (auto) 0.0, Anion Gap 11, Glomerular Filtration Rate 26.6L, Calcium Level 8.8, Magnesium Level 2.8H, Total Bilirubin 0.5, Direct Bilirubin 0.2, Aspartate Amino Transf (AST/SGOT) 21, Alanine Aminotransferase (ALT/SGPT) 26, Alkaline Phosphatase 45, Total Protein 7.8, Albumin 2.8L, Albumin/Globulin Ratio 0.6L 04/21/21 12:08: Bedside Glucose (Misc Panel) 350H CBC/BMP Laboratory Tests 04/20/21 17:52 04/21/21 09:08 Microbiology Microbiology 04/20/21 Blood Culture - Preliminary, Resulted No growth after 24 hours . All specim... 04/20/21 Blood Culture - Preliminary, Resulted No growth after 24 hours . All specim... Kathya Fink DO Apr 21, 2021 17:47
[2021-04-21] MEDS ORDERED: LEVEMIR (INSULIN DETEMIR) 1 UNITS/0.01ML SC SCH (21:00)
[2021-04-21] MEDS ORDERED: TOUJEO 300 UNIT/ML SC SCH (21:00)
[2021-04-21] MEDS: ENOXAPARIN 40MG/0.4ML SYRINGE (J1650 PER 10MG) SC SCH (23:29)
[2021-04-22] VITALS (9 sets, daily range): BP systolic 127–164; BP diastolic 67–80; O2SAT 9–98
[2021-04-22 07:59] LABS: BASO % 0.1 % (0.0-1.0); HEMATOCRIT 27.1 % (36.0-47.0); HEMOGLOBIN 9.1 g/dl (12.0-15.5); LYMPH % 6.5 % (24.0-44.0); MEAN CORPUSCULAR HEMOGLOBIN 29.5 pg (27.0-33.0); MEAN CORPUSCULAR HGB CONC 33.6 g/dl (32.0-36.5); MONO # 0.8 10^3/uL (0.0-0.8); MONO % 5.5 % (2.0-8.0); NEUTROPHILS # 12.8 10^3/uL (1.5-8.5); PLATELET COUNT, AUTOMATED 275 10^3/uL (150-450); RED BLOOD COUNT 3.08 10^6/uL (4.00-5.40); WHITE BLOOD COUNT 14.9 10^3/uL (4.0-10.0)
[2021-04-22 08:11] LABS: INR 1.36; PROTHROMBIN TIME 17.2 SECONDS (12.7-14.5)
[2021-04-22 08:12] LABS: PARTIAL THROMBOPLASTIN TIME 37.5 SECONDS (25.9-37.0)
[2021-04-22 08:23] LABS: ALBUMIN 2.6 GM/DL (3.2-5.2); ALT/SGPT 26 U/L (12-78); BILIRUBIN,DIRECT 0.1 MG/DL (0.0-0.2); BILIRUBIN,TOTAL 0.4 MG/DL (0.2-1.0); BLOOD UREA NITROGEN 61 MG/DL (7-18); CALCIUM LEVEL 8.8 MG/DL (8.8-10.2); CARBON DIOXIDE LEVEL 21 MEQ/L (21-32); CHLORIDE LEVEL 113 MEQ/L (98-107); CPK CREATINE PHOSPHOKINASE 117 U/L (26-192); CREATININE FOR GFR 1.63 MG/DL (0.55-1.30); FERRITIN 1509 NG/ML (8-252); GLOMERULAR FILTRATION RATE 32.9 (>39); GLUCOSE, FASTING 342 MG/DL (70-100); LDH LACTATE DEHYDROGENASE 356 U/L (84-246); MAGNESIUM LEVEL 2.8 MG/DL (1.8-2.4); NT-PRO BNP 2924 PG/ML (<125); POTASSIUM SERUM 5.2 MEQ/L (3.5-5.1); SODIUM LEVEL 141 MEQ/L (136-145); TOTAL PROTEIN 7.1 GM/DL (6.4-8.2); TROPONIN I < 0.02 NG/ML (< 0.10)
[2021-04-22] MEDS: MAGNESIUM OXIDE 400MG TAB (MAG-OX) PO SCH (09:00)
[2021-04-22] MEDS ORDERED: LEVEMIR (INSULIN DETEMIR) 1 UNITS/0.01ML SC SCH (09:00)
[2021-04-22] MEDS: HumaLOG INSULIN (NovoLOG) PER UNIT SC SCH ×4 (10:02→20:14)
[2021-04-22] MEDS: ASPIRIN 81MG ENTERIC TABLET PO SCH (10:02)
[2021-04-22] MEDS: ROSUVASTATIN 10 MG TAB (CRESTOR) PO SCH (10:02)
[2021-04-22] MEDS: CLOPIDOGREL 75 MG TAB PO SCH (10:03)
[2021-04-22] MEDS: dexameTHASONE 4 MG/ML 1ML VIAL (J1100 PER 1MG) IV SCH (10:03)
[2021-04-22] MEDS: COSOPT OCUMETER PLUS 10ML (DORZOLAMIDE/TIMOLOL) OU SCH ×2 (10:04→20:20)
[2021-04-22] MEDS: CARVedilol 6.25 MG TAB PO SCH ×2 (10:06→20:17)
[2021-04-22] MEDS: ENOXAPARIN 40MG/0.4ML SYRINGE (J1650 PER 10MG) SC SCH ×2 (11:51→20:17)
[2021-04-22] MEDS: LEVEMIR (INSULIN DETEMIR) 1 UNITS/0.01ML SC SCH (11:51)
--- NOTE | 2021-04-22 16:30 | IPNPDOC ---
Date Seen The patient was seen on 04/22/21. Progress Note SUBJECTIVE: Patient is a 71-year-old female who was admitted to the hospital with COVID pneumonia. Patient states that she is doing well and has complaints overnight. She is lying comfortably in bed at this time. Patient was exposed to COVID Wednesday (04/14/2021); today is day 8 of her exposure. Spoke with patient about her insulin allergy which she states she does not have. OBJECTIVE PHYSICAL EXAMINATION: VITAL SIGNS: Please see below. GENERAL: Alert and oriented; in no acute distress HEENT: Head normocephalic atraumatic; moist mucous membrane CARDIOVASCULAR: Regular rate and rhythm; no rubs gallops or murmurs appreciated RESPIRATORY: Mild rales heard bibasilar bilaterally ABDOMINAL: Bowel sounds normal; soft nondistended, no tenderness to palpation] EXTREMITIES: 2+ pulses in dorsalis pedis bilaterally; no edema noted in lower extremities bilaterally LABORATORY DATA, MICROBIOLOGY: Please see below. IMAGING: CXR 04/20: Subtle scattered air airspace disease is suspected. COVID related lung disease cannot be excluded and requires correlation. ASSESSMENT AND PLAN: This is a 71-year-old female presenting with shortness of breath, found to be hypoxic and testing positive for SARSCOV2 concerning for COVID19 pneumonia PROBLEMS: 1. Acute hypoxic respiratory failure - likely 2/2 COVID19 pneumonia - Given her comorbidities, patient was given a loading dose of Remdesivir 200 mg will continue to have her Remdesivir 100 mg for the next 5 days (day 2/5). We will continue IV Decadron 6 mg for 10 days (day 210). - D-dimer was over [address] patient on Lovenox 40 mg BID. - Oxygen supplementation as needed to ensure saturations above 90%. 2. Prerenal azotemia with acute kidney injury -Possible due to diarrhea for the past week causing dehydration. Kidney function AM labs showed downtrending of their BUN/creatinine to her normal baseline. Will discontinue IV hydration. 3. CAD with past history of IA at 38 years old - c/w Carvedilol - We will continue to hold her home dose of valsartan, spironolactone and furosemide 4. Diabetes mellitus type 2 - We will continue with consistent carbohydrate diet; basal insulin Levemir 70 units at night as well as sliding scale insulin while inpatient. - Continue to hold home diabetic medications. DVT prophylaxis ordered?: Yes; Lovenox 40mg BID DISPOSITION: [Pending clinical improvement]. VS, I&O, 24H, [facility] Vital Signs/I&O Vital Signs Date Time Temp Pulse Resp B/P (MAP) Pulse Ox O2 Delivery O2 Flow Rate FiO2 04/22/21 06:08 96.7 60 20 152/70 (97) 95 High Flow Cannula 10.0 I&O- Last 24 Hours up to 6 AM 04/22/21 06:00 Intake Total 600 ml Output Total 1000 ml Balance -400 ml Laboratory Data 24H LABS Laboratory Tests 2 04/21/21 09:08: Immature Granulocyte % (Auto) 2.2, Neutrophils (%) (Auto) 87.6H, Lymphocytes (%) (Auto) 7.7L, Monocytes (%) (Auto) 2.4, Eosinophils (%) (Auto) 0.0, Basophils (%) (Auto) 0.1, Neutrophils # (Auto) 8.4, Lymphocytes # (Auto) 0.7L, Monocytes # (Auto) 0.2, Eosinophils # (Auto) 0.0, Basophils # (Auto) 0.0, Nucleated Red Blood Cells % (auto) 0.0, Anion Gap 11, Glomerular Filtration Rate 26.6L, Calcium Level 8.8, Magnesium Level 2.8H, Total Bilirubin 0.5, Direct Bilirubin 0.2, Aspartate Amino Transf (AST/SGOT) 21, Alanine Aminotransferase (ALT/SGPT) 26, Alkaline Phosphatase 45, Total Protein 7.8, Albumin 2.8L, Albumin/Globulin Ratio 0.6L 04/21/21 12:08: Bedside Glucose (Misc Panel) 350H 04/21/21 17:14: Bedside Glucose (Misc Panel) 360H 04/21/21 21:54: Bedside Glucose (Misc Panel) 379H 04/22/21 06:01: Bedside Glucose (Misc Panel) 338H 04/22/21 07:04: Immature Granulocyte % (Auto) 1.9, Neutrophils (%) (Auto) 86.0H, Lymphocytes (%) (Auto) 6.5L, Monocytes (%) (Auto) 5.5, Eosinophils (%) (Auto) 0.0, Basophils (%) (Auto) 0.1, Neutrophils # (Auto) 12.8H, Lymphocytes # (Auto) 1.0L, Monocytes # (Auto) 0.8, Eosinophils # (Auto) 0.0, Basophils # (Auto) 0.0, Nucleated Red Blood Cells % (auto) 0.0, Prothrombin Time 17.2H, Prothromb Time International Ratio 1.36, Activated Partial Thromboplast Time 37.5, Fibrinogen 590H, Anion Gap 7L, Glomerular Filtration Rate 32.9L, Calcium Level 8.8, Magnesium Level 2.8H, Ferritin 1509H, Total Bilirubin 0.4, Direct Bilirubin 0.1, Aspartate Amino Transf (AST/SGOT) 18, Alanine Aminotransferase (ALT/SGPT) 26, Alkaline Phosphatase 43L, Lactate Dehydrogenase 356H, Total Creatine Kinase 117, Troponin I < 0.02, JA-Pzm-H-Type Natriuretic Peptide 2924H, Total Protein 7.1, Albumin 2.6L, Albumin/Globulin Ratio 0.6L CBC/BMP Laboratory Tests 04/21/21 09:08 04/22/21 07:04 Microbiology Microbiology 04/20/21 Blood Culture - Preliminary, Resulted No growth after 24 hours . All specim... 04/20/21 Blood Culture - Preliminary, Resulted No growth after 24 hours . All specim... GME ATTESTATION GME ATTESTATION My faculty preceptor for this patient encounter was physically present during the encounter and was fully available. All aspects of the patient interview, examination, medical decision making process, and medical care plan development were reviewed and approved by the faculty preceptor. The faculty preceptor is aware and concurs with the plan as stated in the body of this note and will attest to such by his/her cosignature. ATTENDING NOTE I, Camila Almanza, have independently examined this patient and performed my own physical exam, as well as reviewed the documentation and edited where necessary. I have discussed in detail with the resident / student the findings and plan of treatment as documented by the resident / student and edited their note. I agree with their findings and treatment plan and have edited their documentation. I will continue to follow the patient during this hospital stay. Kathya Fink DO Apr 22, 2021 09:14 CAMILA ALMANZA MD Apr 22, 2021 16:30
[2021-04-22] MEDS: SODIUM CHLORIDE 0.9% INJ 10 ML SYR IV SCH (23:29)
[2021-04-22] MEDS: REMDESIVIR 100 MG in NS 250 ML IV SCH (23:29)
[2021-04-23] VITALS (8 sets, daily range): BP systolic 138–149; BP diastolic 62–72; O2SAT 88–98
[2021-04-23 07:11] LABS: BASO % 0.1 % (0.0-1.0); HEMATOCRIT 29.7 % (36.0-47.0); HEMOGLOBIN 9.8 g/dl (12.0-15.5); LYMPH # 1.3 10^3/uL (1.5-5.0); LYMPH % 7.7 % (24.0-44.0); MEAN CORPUSCULAR HEMOGLOBIN 29.6 pg (27.0-33.0); MEAN CORPUSCULAR VOLUME 89.7 fl (80.0-96.0); MONO % 5.6 % (2.0-8.0); NEUTROPHILS # 14.6 10^3/uL (1.5-8.5); NEUTROPHILS % 85.3 % (36.0-66.0); PLATELET COUNT, AUTOMATED 330 10^3/uL (150-450); RED BLOOD COUNT 3.31 10^6/uL (4.00-5.40); WHITE BLOOD COUNT 17.1 10^3/uL (4.0-10.0)
[2021-04-23 07:30] LABS: CALCIUM LEVEL 8.7 MG/DL (8.8-10.2); CREATININE FOR GFR 1.62 MG/DL (0.55-1.30); GLOMERULAR FILTRATION RATE 33.2 (>39); MAGNESIUM LEVEL 2.6 MG/DL (1.8-2.4); POTASSIUM SERUM 5.2 MEQ/L (3.5-5.1)
[2021-04-23] MEDS: LEVEMIR (INSULIN DETEMIR) 1 UNITS/0.01ML SC SCH (07:59)
[2021-04-23] MEDS: HumaLOG INSULIN (NovoLOG) PER UNIT SC SCH ×4 (08:00→20:29)
[2021-04-23] MEDS: ROSUVASTATIN 10 MG TAB (CRESTOR) PO SCH (08:00)
[2021-04-23] MEDS: ENOXAPARIN 40MG/0.4ML SYRINGE (J1650 PER 10MG) SC SCH ×2 (08:00→20:28)
[2021-04-23] MEDS: ASPIRIN 81MG ENTERIC TABLET PO SCH (08:01)
[2021-04-23] MEDS: CARVedilol 6.25 MG TAB PO SCH ×2 (08:01→20:28)
[2021-04-23] MEDS: dexameTHASONE 4 MG/ML 1ML VIAL (J1100 PER 1MG) IV SCH (08:01)
[2021-04-23] MEDS: CLOPIDOGREL 75 MG TAB PO SCH (08:01)
[2021-04-23] MEDS: COSOPT OCUMETER PLUS 10ML (DORZOLAMIDE/TIMOLOL) OU SCH ×2 (08:08→20:31)
--- NOTE | 2021-04-23 08:39 | IPNPDOC ---
Date Seen The patient was seen on 04/23/21. Progress Note SUBJECTIVE: Patient is a 71-year-old female who was admitted to the hospital with COVID pneumonia. Patient states that she is doing well and has no complaints overnight. Patient was exposed to COVID Wednesday (04/14/2021); today is day 9 of her exposure. Patient was lying comfortably in bed resting on 7L of oxygen saturating at 100%. OBJECTIVE PHYSICAL EXAMINATION: VITAL SIGNS: Please see below. GENERAL: Alert and oriented; in no acute distress HEENT: Head normocephalic atraumatic; moist mucous membranes CARDIOVASCULAR: Regular rate and rhythm; no rubs, gallops, or murmurs appreci ated RESPIRATORY: Mild crackles heard in right lower lung ABDOMINAL: Bowel sounds normal; soft nondistended, no tenderness to palpation EXTREMITIES: 2+ pulses in dorsalis pedis bilaterally; no edema noted in lower extremities bilaterally LABORATORY DATA, IMAGING STUDIES, MICROBIOLOGY: Please see below. DVT prophylaxis ordered?: Yes; Lovenox 40 mg BID ASSESSMENT AND PLAN: This is a 71-year-old female presenting with shortness of breath, found to be hypoxic and testing positive for SARSCOV2 concerning for COVID19 pneumonia. PROBLEMS: 1. Acute hypoxic respiratory failure - likely 2/2 COVID19 pneumonia - Given her comorbidities, patient was given a loading dose of Remdesivir 200 mg will continue to have her Remdesivir 100 mg for the next 5 days (day 3/5). We will continue IV Decadron 6 mg for 10 days (day 310). - D-dimer was over 4000 previously; continue Lovenox 40 mg BID. - Oxygen supplementation as needed to ensure saturations above 90%; as patient is saturating 98-100% on 7L of oxygen can consider titrating her down 2. Prerenal azotemia with acute kidney injury on CKD3 - Baseline Cr of possibly 1.6 - Cr has improved to essentially baseline - Possible due to diarrhea for the past week causing dehydration. Kidney function AM labs showed downtrending of their BUN/creatinine to her normal baseline - IVF discontinued. 3. CAD with past history of VT at 38 years old - Continue with Carvedilol - Continue to hold her home dose of valsartan, spironolactone and furosemide 4. Diabetes mellitus type 2 - Continue with consistent carbohydrate diet; basal insulin Levemir 70 units at night as well as sliding scale insulin while inpatient - Continue to hold home diabetic medications DISPOSITION: Pending clinical improvement. VS, I&O, 24H, Fishbone Vital Signs/I&O Vital Signs Date Time Temp Pulse Resp B/P (MAP) Pulse Ox O2 Delivery O2 Flow Rate FiO2 04/23/21 08:01 60 149/63 04/23/21 06:29 92 Nasal Cannula 8.0 04/23/21 06:17 97.1 20 I&O- Last 24 Hours up to 6 AM 04/23/21 06:00 Intake Total 1890 ml Output Total 575 ml Balance 1315 ml Laboratory Data 24H LABS Laboratory Tests 2 04/22/21 11:49: Bedside Glucose (Misc Panel) 413H 04/22/21 16:58: Bedside Glucose (Misc Panel) 345H 04/22/21 20:07: Bedside Glucose (Misc Panel) 324H 04/23/21 06:18: Immature Granulocyte % (Auto) 1.3, Neutrophils (%) (Auto) 85.3H, Lymphocytes (%) (Auto) 7.7L, Monocytes (%) (Auto) 5.6, Eosinophils (%) (Auto) 0.0, Basophils (%) (Auto) 0.1, Neutrophils # (Auto) 14.6H, Lymphocytes # (Auto) 1.3L, Monocytes # (Auto) 1.0H, Eosinophils # (Auto) 0.0, Basophils # (Auto) 0.0, Nucleated Red Blood Cells % (auto) 0.0, Anion Gap 8, Glomerular Filtration Rate 33.2L, Calcium Level 8.7L, Magnesium Level 2.6H CBC/BMP Laboratory Tests 04/23/21 06:18 Microbiology Microbiology 04/20/21 Blood Culture - Preliminary, Resulted No Growth after 48 hours. All Specime... 04/20/21 Blood Culture - Preliminary, Resulted No Growth after 48 hours. All Specime... GME ATTESTATION GME ATTESTATION My faculty preceptor for this patient encounter was physically present during the encounter and was fully available. All aspects of the patient interview, examination, medical decision making process, and medical care plan development were reviewed and approved by the faculty preceptor. The faculty preceptor is aware and concurs with the plan as stated in the body of this note and will attest to such by his/her cosignature. ATTENDING NOTE I, Camila Almanza, have independently examined this patient and performed my own physical exam, as well as reviewed the documentation and edited where necessary. I have discussed in detail with the resident / student the findings and plan of treatment as documented by the resident / student and edited their note. I agree with their findings and treatment plan and have edited their documentation. I will continue to follow the patient during this hospital stay. Kathya Fink DO Apr 23, 2021 08:39 CAMILA ALMANZA MD Apr 23, 2021 12:15
[2021-04-24] VITALS (7 sets, daily range): BP systolic 125–166; BP diastolic 58–82; O2SAT 90–97
[2021-04-24] MEDS: REMDESIVIR 100 MG in NS 250 ML IV SCH (00:43)
[2021-04-24] MEDS: SODIUM CHLORIDE 0.9% INJ 10 ML SYR IV SCH (00:44)
[2021-04-24] MEDS: HumaLOG INSULIN (NovoLOG) PER UNIT SC SCH ×4 (07:30→21:50)
--- NOTE | 2021-04-24 08:47 | IPNPDOC ---
Date Seen The patient was seen on 04/24/21. Progress Note SUBJECTIVE: Patient is a 71-year-old female who was admitted to the hospital with COVID pneumonia. Patient states that she is doing well and has no complaints overnight. Patient was exposed to COVID Wednesday (04/14/2021); today is day 10 of her exposure. She was eating breakfast, lying comfortably in bed resting and speaking with no shortness of breath or using any accessory muscles. After speaking to the nurse, overnight she had an episode of O2 saturation dropping to the 80s; oxygen was then bumped to 8L. OBJECTIVE PHYSICAL EXAMINATION: VITAL SIGNS: Please see below. GENERAL: Alert and oriented; in no acute distress HEENT: Head normocephalic atraumatic; moist mucous membranes CARDIOVASCULAR: Regular rate and rhythm; no rubs, gallops, or murmurs appreciated RESPIRATORY: Mild crackles heard in right lower lung; no accessory muscle usage; no shortness of breath noted ABDOMINAL: Bowel sounds normal; soft nondistended, no tenderness to palpation EXTREMITIES: 2+ pulses in dorsalis pedis bilaterally; no edema noted in lower extremities bilaterally LABORATORY DATA, IMAGING STUDIES, MICROBIOLOGY: Please see below. DVT prophylaxis ordered?: Yes; Lovenox 40 mg BID ASSESSMENT AND PLAN: This is a 71-year-old female presenting with shortness of breath, found to be hypoxic and testing positive for SARSCOV2 concerning for COVID19 pneumonia. 1. Acute hypoxic respiratory failure - likely 2/2 COVID19 pneumonia - Given her comorbidities, patient was given a loading dose of Remdesivir 200 mg + Remdesivir 100 mg for the next 4 days; she finished her course today. - Continue IV Decadron 6 mg for 10 days (day 12/07). - D-dimer was over 4000 previously; continue Lovenox 40 mg BID. - Oxygen supplementation as needed to ensure saturations above 90% 2. Prerenal azotemia with acute kidney injury on CKD3 - Baseline Cr of possibly 1.6 - Cr has improved to essentially baseline - Possible due to diarrhea for the past week causing dehydration. Kidney function AM labs showed downtrending of their BUN/creatinine to her normal baseline - IVF discontinued. 3. CAD with past history of NE at 38 years old - Continue with Carvedilol - Continue to hold her home dose of valsartan, spironolactone and furosemide 4. Diabetes mellitus type 2 - Continue with consistent carbohydrate diet; basal insulin Levemir 70 units at night as well as sliding scale insulin while inpatient - Continue to hold home diabetic medications DISPOSITION: - Pending clinical improvement - c/w PT and OT VS, I&O, 24H, Fishbone Vital Signs/I&O Vital Signs Date Time Temp Pulse Resp B/P (MAP) Pulse Ox O2 Delivery O2 Flow Rate FiO2 04/24/21 06:00 Nasal Cannula 04/24/21 04:00 97 04/24/21 04:00 8.0 04/24/21 04:00 97.6 58 20 146/82 (103) I&O- Last 24 Hours up to 6 AM 04/24/21 06:00 Intake Total 1080 ml Output Total 1600 ml Balance -520 ml Laboratory Data 24H LABS Laboratory Tests 2 04/23/21 12:05: Bedside Glucose (Misc Panel) 260H 04/23/21 17:19: Bedside Glucose (Misc Panel) 263H 04/23/21 20:13: Bedside Glucose (Misc Panel) 327H 04/24/21 07:49: Bedside Glucose (Misc Panel) 108 Microbiology Microbiology 04/20/21 Blood Culture - Preliminary, Resulted No Growth after 72 hours. All specime... 04/20/21 Blood Culture - Preliminary, Resulted No Growth after 72 hours. All specime... GME ATTESTATION GME ATTESTATION My faculty preceptor for this patient encounter was physically present during the encounter and was fully available. All aspects of the patient interview, examination, medical decision making process, and medical care plan development were reviewed and approved by the faculty preceptor. The faculty preceptor is aware and concurs with the plan as stated in the body of this note and will attest to such by his/her cosignature. ATTENDING NOTE I, Camila Almanza, have independently examined this patient and performed my own physical exam, as well as reviewed the documentation and edited where necessary. I have discussed in detail with the resident / student the findings and plan of treatment as documented by the resident / student and edited their note. I agree with their findings and treatment plan and have edited their documentation. I will continue to follow the patient during this hospital stay. Kathya Fink DO Apr 24, 2021 08:47 CAMILA ALMANZA MD Apr 24, 2021 13:24
[2021-04-24] MEDS: ENOXAPARIN 40MG/0.4ML SYRINGE (J1650 PER 10MG) SC SCH ×2 (08:56→21:49)
[2021-04-24] MEDS: LEVEMIR (INSULIN DETEMIR) 1 UNITS/0.01ML SC SCH (08:57)
[2021-04-24] MEDS: ROSUVASTATIN 10 MG TAB (CRESTOR) PO SCH (08:57)
[2021-04-24] MEDS: dexameTHASONE 4 MG/ML 1ML VIAL (J1100 PER 1MG) IV SCH (08:57)
[2021-04-24] MEDS: CLOPIDOGREL 75 MG TAB PO SCH (08:58)
[2021-04-24] MEDS: CARVedilol 6.25 MG TAB PO SCH ×2 (08:58→21:49)
[2021-04-24] MEDS: COSOPT OCUMETER PLUS 10ML (DORZOLAMIDE/TIMOLOL) OU SCH ×2 (08:58→20:37)
[2021-04-24] MEDS: ASPIRIN 81MG ENTERIC TABLET PO SCH (08:58)
[2021-04-24 10:01] LABS: BASO % 0.1 % (0.0-1.0); HEMATOCRIT 29.5 % (36.0-47.0); HEMOGLOBIN 9.5 g/dl (12.0-15.5); LYMPH # 1.1 10^3/uL (1.5-5.0); LYMPH % 7.8 % (24.0-44.0); MEAN CORPUSCULAR HGB CONC 32.2 g/dl (32.0-36.5); MEAN CORPUSCULAR VOLUME 89.9 fl (80.0-96.0); MONO # 0.6 10^3/uL (0.0-0.8); MONO % 4.5 % (2.0-8.0); NEUTROPHILS # 12.2 10^3/uL (1.5-8.5); NEUTROPHILS % 86.2 % (36.0-66.0); PLATELET COUNT, AUTOMATED 288 10^3/uL (150-450); RED BLOOD COUNT 3.28 10^6/uL (4.00-5.40); WHITE BLOOD COUNT 14.2 10^3/uL (4.0-10.0)
[2021-04-24 10:22] LABS: INR 1.3; PROTHROMBIN TIME 16.7 SECONDS (12.7-14.5)
[2021-04-24 10:23] LABS: PARTIAL THROMBOPLASTIN TIME 35.3 SECONDS (25.9-37.0)
[2021-04-24 10:30] LABS: BLOOD UREA NITROGEN 45 MG/DL (7-18); CARBON DIOXIDE LEVEL 21 MEQ/L (21-32); CHLORIDE LEVEL 114 MEQ/L (98-107); CREATININE FOR GFR 1.47 MG/DL (0.55-1.30); GLOMERULAR FILTRATION RATE 37.1 (>39); GLUCOSE, FASTING 191 MG/DL (70-100); POTASSIUM SERUM 4.3 MEQ/L (3.5-5.1); SODIUM LEVEL 141 MEQ/L (136-145)
[2021-04-24 10:31] LABS: ALBUMIN 2.6 GM/DL (3.2-5.2); ALT/SGPT 28 U/L (12-78); BILIRUBIN,DIRECT 0.2 MG/DL (0.0-0.2); BILIRUBIN,TOTAL 0.5 MG/DL (0.2-1.0); CALCIUM LEVEL 8.8 MG/DL (8.8-10.2); CPK CREATINE PHOSPHOKINASE 68 U/L (26-192); FERRITIN 1197 NG/ML (8-252); LDH LACTATE DEHYDROGENASE 371 U/L (84-246); MAGNESIUM LEVEL 2.1 MG/DL (1.8-2.4); TOTAL PROTEIN 6.9 GM/DL (6.4-8.2); TROPONIN I < 0.02 NG/ML (< 0.10)
[2021-04-24 12:32] LABS: ABG BASE EXCESS -3.1 (-2.0-2.0); ABG HCO3 18.9 MEQ/L (22.0-26.0); ABG O2 SATURATION 98.6 % (95.0-99.0); ABG PARTIAL PRESSURE CO2 24.3 mmHg (35.0-45.0); ABG PARTIAL PRESSURE O2 148.8 mmHg (75.0-100.0); ABG STANDARD HCO3 21.9 MEQ/L (22.0-26.0); ABG TOTAL CO2 19.6 MEQ/L (23.0-31.0); ABG pH (ARTERIAL) 7.508 UNITS (7.350-7.450)
[2021-04-24 14:40] LABS: NT-PRO BNP 2233 PG/ML (<125)
[2021-04-25] VITALS: O2SAT 100
[2021-04-25 04:00] VITALS: BP 143/69; O2SAT 100
[2021-04-25 07:58] LABS: BASO % 0.1 % (0.0-1.0); HEMOGLOBIN 9.3 g/dl (12.0-15.5); LYMPH % 9.9 % (24.0-44.0); MEAN CORPUSCULAR HGB CONC 33.2 g/dl (32.0-36.5); MEAN CORPUSCULAR VOLUME 87.2 fl (80.0-96.0); MONO # 0.6 10^3/uL (0.0-0.8); MONO % 6.2 % (2.0-8.0); NEUTROPHILS # 8.3 10^3/uL (1.5-8.5); NEUTROPHILS % 82.5 % (36.0-66.0); PLATELET COUNT, AUTOMATED 305 10^3/uL (150-450); RED BLOOD COUNT 3.21 10^6/uL (4.00-5.40); WHITE BLOOD COUNT 10.1 10^3/uL (4.0-10.0)
--- NOTE | 2021-04-25 08:17 | REP ---
INDICATION: hypoxia; COVID pneumonia COMPARISON: 04/20/2021 TECHNIQUE: Portable AP view of the chest FINDINGS: The mediastinum and cardiac silhouette are stable and within normal limits for portable technique. Prior sternotomy and pacemaker again noted. The lung garcia demonstrate diffuse patchy bilateral airspace disease which is essentially unchanged from prior examination and should be correlated with physical examination and auscultation. No obvious effusion. No pneumothorax. Skeletal structures are intact. IMPRESSION: Diffuse patchy bilateral airspace disease consistent with COVID related pneumonia and essentially unchanged. <Electronically signed by Javier Person > 04/25/21 [id number]
[2021-04-25 08:24] LABS: CALCIUM LEVEL 8.4 MG/DL (8.8-10.2); CREATININE FOR GFR 1.31 MG/DL (0.55-1.30); GLOMERULAR FILTRATION RATE 42.4 (>39); POTASSIUM SERUM 4.9 MEQ/L (3.5-5.1)
[2021-04-25 08:25] LABS: MAGNESIUM LEVEL 2.3 MG/DL (1.8-2.4)
[2021-04-25] MEDS: CLOPIDOGREL 75 MG TAB PO SCH (09:25)
[2021-04-25] MEDS: ENOXAPARIN 40MG/0.4ML SYRINGE (J1650 PER 10MG) SC SCH ×2 (09:25→21:30)
[2021-04-25] MEDS: CARVedilol 6.25 MG TAB PO SCH ×2 (09:26→21:29)
[2021-04-25] MEDS: ROSUVASTATIN 10 MG TAB (CRESTOR) PO SCH (09:26)
[2021-04-25] MEDS: ASPIRIN 81MG ENTERIC TABLET PO SCH (09:26)
[2021-04-25] MEDS: dexameTHASONE 4 MG/ML 1ML VIAL (J1100 PER 1MG) IV SCH (09:26)
[2021-04-25] MEDS: LEVEMIR (INSULIN DETEMIR) 1 UNITS/0.01ML SC SCH (09:27)
[2021-04-25] MEDS: HumaLOG INSULIN (NovoLOG) PER UNIT SC SCH ×4 (09:27→21:31)
[2021-04-25] MEDS: COSOPT OCUMETER PLUS 10ML (DORZOLAMIDE/TIMOLOL) OU SCH ×2 (09:40→21:31)
--- NOTE | 2021-04-25 10:31 | IPNPDOC ---
Date Seen The patient was seen on 04/25/21. Progress Note SUBJECTIVE: Patient is a 71-year-old female who was admitted to the hospital with COVID pneumonia. Patient states that she is doing well and has no complaints overnight. Patient was exposed to COVID Wednesday (04/14/2021); today is day 11 of her exposure. She was seen lying comfortably in bed resting and reading a novel "The Girl in Blue". Was speaking and holding a conversation with no shortness of breath or any accessory muscle use. She wants to get out of bed and move around with PT. Overnight she had an episode of desaturating to the 80's. OBJECTIVE PHYSICAL EXAMINATION: VITAL SIGNS: Please see below. GENERAL: Alert and oriented; in no acute distress HEENT: Head normocephalic atraumatic; moist mucous membranes CARDIOVASCULAR: Regular rate and rhythm; no rubs, gallops, or murmurs appreciated RESPIRATORY: Clear to auscultation bilaterally; no accessory muscle usage; no shortness of breath noted ABDOMINAL: Bowel sounds normal; soft nondistended, no tenderness to palpation EXTREMITIES: 2+ pulses in dorsalis pedis bilaterally; no edema noted in lower extremities bilaterally LABORATORY DATA, IMAGING STUDIES, MICROBIOLOGY: Please see below. DVT prophylaxis ordered?: Yes; Lovenox 40 mg BID ASSESSMENT AND PLAN: This is a 71-year-old female presenting with shortness of breath, found to be hypoxic and testing positive for SARSCOV2 c oncerning for COVID19 pneumonia. PROBLEMS: Acute hypoxic respiratory failure - likely 2/2 COVID19 pneumonia - Patient has finished her 5 days course of Remdesivir yesterday - c/w IV Decadron 6 mg for 10 days (day 01/06). - D-dimer was over 4000 previously; continue Lovenox 40 mg BID - Oxygen supplementation as needed to ensure saturations above 90%; continue to try titrating down supplementation - Pt overnight had an episode of desaturating to the 80's so will obtain an CXR to check for any progression Prerenal azotemia with acute kidney injury on CKD3 - Baseline Cr of possibly 1.6 - Cr has improved to essentially baseline - 2/2 diarrhea for the past week causing dehydration. AM labs show downtrended BUN/creatinine to her normal baseline - IVF discontinued 3. CAD with past history of VT at 38 years old - c/w Carvedilol - Continue to hold her home dose of valsartan, spironolactone and furosemide 4. Diabetes mellitus type 2 - c/w with consistent carbohydrate diet; basal insulin Levemir 70 units at night as well as sliding scale insulin while inpatient - Continue to hold home diabetic medications DISPOSITION: - Pending clinical improvement - c/w PT and OT VS, I&O, 24H, Fishbone Vital Signs/I&O Vital Signs Date Time Temp Pulse Resp B/P (MAP) Pulse Ox O2 Delivery O2 Flow Rate FiO2 04/25/21 09:26 67 113/56 04/25/21 09:22 88 High Flow Cannula 12.0 04/25/21 04:00 97.6 19 I&O- Last 24 Hours up to 6 AM 04/25/21 06:00 Intake Total 950 ml Output Total 300 ml Balance 650 ml Laboratory Data 24H LABS Laboratory Tests 2 04/24/21 11:55: Bedside Glucose (Misc Panel) 196H 04/24/21 12:10: Blood Gas Bicarbonate Standard 21.9L, Arterial Blood pH 7.508H, Arterial Blood Partial Pressure CO2 24.3L, Arterial Blood Partial Pressure O2 148.8H, Arterial Blood Total CO2 19.6L, Arterial Blood HCO3 18.9L, Arterial Blood Base Excess - 3.1L, Arterial Blood Oxygen Saturation 98.6 04/24/21 16:47: Bedside Glucose (Misc Panel) 191H 04/24/21 21:43: Bedside Glucose (Misc Panel) 364H 04/25/21 07:27: Immature Granulocyte % (Auto) 1.3, Neutrophils (%) (Auto) 82.5H, Lymphocytes (%) (Auto) 9.9L, Monocytes (%) (Auto) 6.2, Eosinophils (%) (Auto) 0.0, Basophils (%) (Auto) 0.1, Neutrophils # (Auto) 8.3, Lymphocytes # (Auto) 1.0L, Monocytes # (Auto) 0.6, Eosinophils # (Auto) 0.0, Basophils # (Auto) 0.0, Nucleated Red Blood Cells % (auto) 0.0, Anion Gap 8, Glomerular Filtration Rate 42.4, Calcium Level 8.4L, Magnesium Level 2.3 CBC/BMP Laboratory Tests 04/25/21 07:27 Microbiology Microbiology 04/20/21 Blood Culture - Preliminary, Resulted No Growth after 72 hours. All specime... 04/20/21 Blood Culture - Preliminary, Resulted No Growth after 72 hours. All specime... GME ATTESTATION GME ATTESTATION My faculty preceptor for this patient encounter was physically present during the encounter and was fully available. All aspects of the patient interview, examination, medical decision making process, and medical care plan development were reviewed and approved by the faculty preceptor. The faculty preceptor is aware and concurs with the plan as stated in the body of this note and will attest to such by his/her cosignature. ATTENDING NOTE I, Camila Almanza, have independently examined this patient and performed my own physical exam, as well as reviewed the documentation and edited where necessary. I have discussed in detail with the resident / student the findings and plan of treatment as documented by the resident / student and edited their note. I agree with their findings and treatment plan and have edited their documentation. I will continue to follow the patient during this hospital stay. Kathya Fink DO Apr 25, 2021 10:31 CAMILA ALMANZA MD Apr 25, 2021 13:08
[2021-04-25 12:00] VITALS: BP 122/55
[2021-04-25 20:00] VITALS: O2SAT 97
[2021-04-25 22:00] VITALS: BP 119/58
[2021-04-26] VITALS (7 sets, daily range): BP systolic 113–157; BP diastolic 50–68; O2SAT 92–98
[2021-04-26 05:02] LABS: HEMATOCRIT 28.7 % (36.0-47.0); HEMOGLOBIN 9.4 g/dl (12.0-15.5); MEAN CORPUSCULAR HEMOGLOBIN 30.6 pg (27.0-33.0); MEAN CORPUSCULAR HGB CONC 32.8 g/dl (32.0-36.5); MEAN CORPUSCULAR VOLUME 93.5 fl (80.0-96.0); PLATELET COUNT, AUTOMATED 320 10^3/uL (150-450); RED BLOOD COUNT 3.07 10^6/uL (4.00-5.40); WHITE BLOOD COUNT 9.3 10^3/uL (4.0-10.0)
[2021-04-26 05:12] LABS: INR 1.39; PROTHROMBIN TIME 17.5 SECONDS (12.7-14.5)
[2021-04-26 05:13] LABS: PARTIAL THROMBOPLASTIN TIME 33.7 SECONDS (25.9-37.0)
[2021-04-26 05:32] LABS: ALBUMIN 2.2 GM/DL (3.2-5.2); ALT/SGPT 20 U/L (12-78); BILIRUBIN,DIRECT 0.4 MG/DL (0.0-0.2); BLOOD UREA NITROGEN 29 MG/DL (7-18); CALCIUM LEVEL 7.9 MG/DL (8.8-10.2); CARBON DIOXIDE LEVEL 28 MEQ/L (21-32); CHLORIDE LEVEL 111 MEQ/L (98-107); CPK CREATINE PHOSPHOKINASE 14 U/L (26-192); CREATININE FOR GFR 0.86 MG/DL (0.55-1.30); FERRITIN 238 NG/ML (8-252); GLOMERULAR FILTRATION RATE > 60.0 (>39); GLUCOSE, FASTING 75 MG/DL (70-100); LDH LACTATE DEHYDROGENASE 152 U/L (84-246); MAGNESIUM LEVEL 2.1 MG/DL (1.8-2.4); NT-PRO BNP 4217 PG/ML (<125); POTASSIUM SERUM 3.7 MEQ/L (3.5-5.1); SODIUM LEVEL 142 MEQ/L (136-145); TOTAL PROTEIN 4.5 GM/DL (6.4-8.2); TROPONIN I 0.03 NG/ML (< 0.10)
[2021-04-26 05:36] LABS: ATYPICAL LYMPH 13 % (0-5); EOSINOPHILS 4 % (0-3); LYMPHOCYTES 11 % (16-44); MONOCYTES 6 % (0-5); MYELOCYTES 4 % (0-0); NEUTROPHILS 62 % (28-66)
[2021-04-26 05:37] LABS: PLATELET ESTIMATE NORMAL (NORMAL)
[2021-04-26 05:38] LABS: ANISOCYTOSIS 1+
[2021-04-26] MEDS: HumaLOG INSULIN (NovoLOG) PER UNIT SC SCH ×3 (07:30→14:20)
[2021-04-26] MEDS: dexameTHASONE 4 MG/ML 1ML VIAL (J1100 PER 1MG) IV SCH (09:02)
[2021-04-26] MEDS: ENOXAPARIN 40MG/0.4ML SYRINGE (J1650 PER 10MG) SC SCH (09:02)
[2021-04-26] MEDS: ASPIRIN 81MG ENTERIC TABLET PO SCH (09:02)
[2021-04-26] MEDS: ROSUVASTATIN 10 MG TAB (CRESTOR) PO SCH (09:02)
[2021-04-26] MEDS: CLOPIDOGREL 75 MG TAB PO SCH (09:03)
[2021-04-26] MEDS: CARVedilol 6.25 MG TAB PO SCH (09:03)
[2021-04-26] MEDS: COSOPT OCUMETER PLUS 10ML (DORZOLAMIDE/TIMOLOL) OU SCH (09:03)
[2021-04-26] MEDS: LEVEMIR (INSULIN DETEMIR) 1 UNITS/0.01ML SC SCH (10:20)
[2021-04-26] MEDS ORDERED: PRED10TA2 PO (11:35)
--- NOTE | 2021-04-26 15:08 | DS.PDOC ---
Discharge Summary General Date of Admission Apr 20, 2021 at 16:09 Date of Discharge April 26, 2021 Discharge Summary PROCEDURES PERFORMED DURING STAY: [None]. ADMITTING DIAGNOSES: 1. COVID-19 Pneumonia induced hypoxia DISCHARGE DIAGNOSES: 1. COVID-19 COMPLICATIONS/CHIEF COMPLAINT: Covid-19, Hypoxia. HISTORY OF PRESENT ILLNESS: Patient presented to the ED for increase shortness of breath. She reports that she was visited by her sister and [id number] on 04/14/2021 and then on the following day began to feel shortness of breath, fatigue, sore throat, and has progressively gotten worse since that time. The patient was vaccinated in September/October of this year. The sister and [id number] ended up testing positive. HOSPITAL COURSE: During her hospital stay, she was found to have COVID-19 Pneumonia induced hypoxia as well as prerenal azotemia, likely secondary to dehydration, causing acute kidney injury. At this time, her home dose of valsartan, spironolactone, and furosemide were held and she was given IV fluids. After adequate hydration patient returned to her baseline. For her COVID pneumonia she received a course of Remdesivir for 5 days, IV Decadron 6mg daily and oxygen supplementation. She was also given Lovenox 40mg BID for anticoagulat ion. After finishing her Remdesivir, she was able to be titrated down to 2-3L oxygen and showed great improvement. Patient was transitioned home with a prednisone taper, home health services and instructions to follow up with her PCP within 5 days. DISCHARGE MEDICATIONS: Please see below. ALLERGIES: Please see below. PHYSICAL EXAMINATION ON DISCHARGE: VITAL SIGNS: Please see below. GENERAL: Alert and oriented; in no acute distress HEENT: Head normocephalic atraumatic; moist mucus membranes CARDIOVASCULAR EXAMINATION: Regular rate and rhythm; no rubs, gallops or murmurs appreciated RESPIRATORY EXAMINATION: Clear to auscultation bilaterally; no accessory muscle usage; no shortness of breath noted ABDOMINAL EXAMINATION: Soft nondistended, bowel sounds normoactive; no tenderness to palpation EXTREMITIES: 2+ pulses dorsalis pedis bilaterally; no edema noted in bilateral lower extremities PSYCHIATRIC EXAMINATION: appropriate mood and affect; patient ready, happy to leave and go home LABORATORY DATA: Please see below. IMAGING: Chest X-ray 04/20/21: "Subtle scattered air airspace disease is suspected. COVID related lung disease cannot be excluded and requires correlation." Chest X-ray 04/25/21: "Diffuse patchy bilateral airspace disease consistent with COVID related pneumonia and essentially unchanged." PROGNOSIS: Good ACTIVITY: As tolerated DIET: as tolerated (regular diet) DISCHARGE PLAN: 1. Send home with home oxygen (keep between 2-3L) 2. Please monitor your oxygen saturation with a pulse oximeter at home 3. Please finish the steroid taper that was given to you 4. Please follow up with your PCP when symptoms resolve 5. If there is any worsening of symptoms or any increased shortness of breath please go to the Emergency Room DISCHARGE CONDITION: [Stable]. TIME SPENT ON DISCHARGE: 33 minutes. Vital Signs/I&Os Vital Signs Date Time Temp Pulse Resp B/P (MAP) Pulse Ox O2 Delivery O2 Flow Rate FiO2 04/26/21 10:48 94 Nasal Cannula 2.0 04/26/21 09:03 60 113/50 04/26/21 08:59 97.3 17 I&O- Last 24 Hours up to 6 AM 04/26/21 06:00 Intake Total 1020 ml Balance 1020 ml Laboratory Data Labs 24H Laboratory Tests 2 04/25/21 16:35: Bedside Glucose (Misc Panel) 284H 04/25/21 19:39: Bedside Glucose (Misc Panel) 330H 04/26/21 04:43: Immature Granulocyte % (Auto) , Neutrophils (%) (Auto) , Nucleated Red Blood Cells % (auto) 0.3H, Neutrophils 62, Lymphocytes (Manual) 11L, Monocytes (Manual) 6H, Eosinophils (Manual) 4H, Myelocytes 4H, Atypical Lymphocytes 13H, Anisocytosis 1+, Platelet Estimate NORMAL, Prothrombin Time 17.5H, Prothromb Time International Ratio 1.39, Activated Partial Thromboplast Time 33.7, Fibrinogen 175L, Anion Gap 3L, Glomerular Filtration Rate > 60.0, Calcium Level 7.9L, Magnesium Level 2.1, Ferritin 238, Total Bilirubin 1.0#, Direct Bilirubin 0.4H, Aspartate Amino Transf (AST/SGOT) 11, Alanine Aminotransferase (ALT/SGPT) 20, Alkaline Phosphatase 42L, Lactate Dehydrogenase 152, Total Creatine Kinase 14#L, Troponin I 0.03#, PU-Vce-F-Type Natriuretic Peptide 4217H, Total Protein 4.5#L, Albumin 2.2L, Albumin/Globulin Ratio 1.0L, Procalcitonin <0.05 04/26/21 10:14: Bedside Glucose (Misc Panel) 365H 04/26/21 13:17: Bedside Glucose (Misc Panel) 308H CBC/BMP Laboratory Tests 04/26/21 04:43 FSBS Laboratory Tests Test 04/25/21 16:35 04/25/21 19:39 04/26/21 10:14 04/26/21 13:17 Range/Units Bedside Glucose (Misc Panel) 284 330 365 308 83-110 MG/DL Microbiology Microbiology 04/20/21 Blood Culture - Final, Complete NO GROWTH AFTER 5 DAYS 04/20/21 Blood Culture - Final, Complete NO GROWTH AFTER 5 DAYS Discharge Medications Scheduled Aspirin (Aspirin EC) 81 Mg Tablet.dr, 81 MG PO DAILY, (Reported) Carvedilol (Carvedilol) 6.25 Mg Tablet, 6.25 MG PO BID, (Reported) Clopidogrel Bisulfate (Plavix) 75 Mg Tablet, 75 MG PO DAILY, (Reported) Dorzolamide HCl/Timolol Maleat (Dorzolamide-Timolol Eye Drops) 10 Ml Drops, 1 DROP OU BID, (Reported) Dulaglutide (Trulicity) 0.75 Mg/0.5 Ml Pen.injctr, 1.5 MG SC 1XWK, (Reported) Ferrous Sulfate (Iron) 325 Mg Tablet, 325 MG PO DAILY, (Reported) Furosemide (Lasix) 40 Mg Tablet, 40 MG PO DAILY, (Reported) Insulin Glargine,Hum.rec.anlog (Toujeo Max Solostar) 300 Unit/1 Ml Insuln.pen, 110 UNIT SC DAILY, (Reported) Insulin Lispro (Humalog Kwikpen U-200) 200 Unit/1 Ml Insuln.pen, 10 UNITS SC QPM, (Reported) Latanoprost/Pf (Latanoprost 0.005% Eye Drop) 7.5 Ml Drops, 1 DROP OU QHS, (Reported) Lutein/Zeaxanthin (Ocuvite Lutein 25-5 mg Softgel) 1 Each Capsule, 1 CAP PO DAILY, (Reported) Magnesium Oxide (Magnesium Oxide) 400 Mg Tablet, 400 MG PO DAILY, (Reported) Prednisone (Prednisone) 10 Mg Tablet, 10 MG PO TAPER Take 4 tabs daily x 3 days, then 3 tabs daily x 3 days, then 2 tabs daily x 3 days, then 1 tab daily x 3 days and stop Rosuvastatin Calcium (Rosuvastatin Calcium) 10 Mg Tablet, 10 MG PO QHS, (Reported) Spironolactone (Spironolactone) 25 Mg Tablet, 25 MG PO DAILY, (Reported) Ubidecarenone (Coq10) 50 Mg Tab.chew, 100 MG PO DAILY, (Reported) Valsartan (Valsartan) 40 Mg Tablet, 40 MG PO DAILY, (Reported) Allergies Coded Allergies: acarbose (Verified Allergy, Severe, SWELLING, 05/12/19) pioglitazone (Verified Allergy, Severe, SWELLING, 05/12/19) Sulfa (Sulfonamide Antibiotics) (Verified Allergy, Intermediate, 05/12/19) insulin aspart (Verified Allergy, Intermediate, RASH, 04/22/21) pt. has bumps at injection site,but uses Humalog with no issue 04/22/21 PT DENIES ALLERGY insulin detemir (Verified Allergy, Mild, RASH, 04/22/21) pt reports bumps at injection site,but uses humalog with no issue 04/22/21 PT DENIES ALLERGY GME ATTESTATION GME ATTESTATION My faculty preceptor for this patient encounter was physically present during the encounter and was fully available. All aspects of the patient interview, examination, medical decision making process, and medical care plan development were reviewed and approved by the faculty preceptor. The faculty preceptor is aware and concurs with the plan as stated in the body of this note and will attest to such by his/her cosignature. ATTENDING NOTE I, Camila Almanza, have independently examined this patient and performed my own physical exam, as well as reviewed the documentation and edited where necessary. I have discussed in detail with the resident / student the findings and plan of treatment as documented by the resident / student and edited their note. I agree with their findings and treatment plan and have edited their documentation. I will continue to follow the patient during this hospital stay. Time spent on discharge 35 minutes Kathya Fink DO Apr 26, 2021 15:08 CAMILA ALMANZA MD Apr 26, 2021 16:31
== END 2021-04-26 17:03 | disposition home health service (06) | DRG 177 ==
LOC: M ED 13:47 → M ED INP 16:09 → ENRESERV 18:54 → M 4MAIN 21:38
PROVIDERS: ADMIT Neuromusculoskeletal Medicine & OMM; ATTEND Internal Medicine
DX: U07.1 COVID-19 (principal); J12.82 Pneumonia due to coronavirus disease 2019; J96.01 Acute respiratory failure with hypoxia; N17.9 Acute kidney failure, unspecified; I12.9 Hypertensive chronic kidney disease with stage 1 through stage 4 chronic kidney disease, or unspecified chronic kidney disease; E86.0 Dehydration; Z79.82 Long term (current) use of aspirin; Z79.899 Other long term (current) drug therapy; Z88.8 Allergy status to other drugs, medicaments and biological substances; Z88.2 Allergy status to sulfonamides; E78.5 Hyperlipidemia, unspecified; I25.2 Old myocardial infarction; D50.9 Iron deficiency anemia, unspecified; I25.10 Atherosclerotic heart disease of native coronary artery without angina pectoris; N18.30 Chronic kidney disease, stage 3 unspecified

== ENCOUNTER → 2021-05-20 | Outpatient (REF) | payer MEDICARE ==
[~2021-05-20] MED LIST changes: -ASPIRIN 81MG ENTERIC TABLET PO SCH; +CARV6.25 PO; +DORZ2SOL5 OU; +HUMA50IN4 SC; +LATA0.0015 OU; +MAGN400T2 PO; +PRED10TA2 PO; +ROSU10TA6 PO; +VALS40TA9 PO
[2021-05-21 11:45] LABS: PERCENT SATURATION 11.4 % (13.2-45.0)
== END ==
LOC: M LAB REF 10:57
PROVIDERS: ATTEND Internal Medicine
DX: D64.9 Anemia, unspecified (principal)

== ENCOUNTER → 2021-06-13 | Outpatient (REF) | payer MEDICARE | LOC: M LAB REF 17:15 | PROVIDERS: ATTEND Internal Medicine Nephrology | DX: N18.4 Chronic kidney disease, stage 4 (severe) (principal) ==

== ENCOUNTER → 2021-07-28 | Outpatient (CLI) | payer MEDICARE ==
[~2021-07-28] MED LIST changes: +LOSA50TA28 PO; -LOSA50TA88 PO
== END ==
LOC: M RAD 10:49
PROVIDERS: ATTEND Surgery Vascular Surgery
DX: I70.213 Atherosclerosis of native arteries of extremities with intermittent claudication, bilateral legs (principal)

== ENCOUNTER → 2021-10-15 | Outpatient (REF) | payer MEDICARE | LOC: M LAB REF 16:55 | PROVIDERS: ATTEND Nurse Practitioner Family | DX: N18.32 Chronic kidney disease, stage 3b (principal) ==

== ENCOUNTER → 2022-01-07 | Outpatient (REF) | payer MEDICARE | LOC: M LAB REF 16:12 | PROVIDERS: ATTEND Physician Assistant Medical | DX: N39.0 Urinary tract infection, site not specified (principal) ==

== ENCOUNTER → 2022-03-12 | Outpatient (REF) | payer MEDICARE ==
[2022-03-12 13:01] LABS: PERCENT SATURATION 21.7 % (13.2-45.0)
== END ==
LOC: M LAB REF 12:13
PROVIDERS: ATTEND Internal Medicine
DX: D64.9 Anemia, unspecified (principal)

== ENCOUNTER → 2022-03-31 | Outpatient (CLI) | payer MEDICARE | LOC: M WHC 12:26 | PROVIDERS: ATTEND Internal Medicine | DX: Z12.31 Encounter for screening mammogram for malignant neoplasm of breast (principal) ==

== ENCOUNTER 2022-07-07 16:09 | Emergency (ER) | payer MEDICARE ==
[~2022-07-07] VITALS: Ht 162.6 cm; Wt 81.8 kg
[~2022-07-07 16:09] MED LIST changes: +CLOP75TA99 PO; -PLAV1TAB2 PO
[2022-07-07] MEDS ORDERED: LISI2.5T9 (16:20)
[2022-07-07] MEDS ORDERED: ACETAMINOPHEN 325 MG TAB PO ONE (21:00)
[2022-07-07 21:09] VITALS: BP 166/72
== END 2022-07-07 21:12 | disposition home or self-care (01) ==
LOC: M ED 16:09
DX: R22.41 Localized swelling, mass and lump, right lower limb (principal); E11.9 Type 2 diabetes mellitus without complications; I10 Essential (primary) hypertension; E78.5 Hyperlipidemia, unspecified; I25.2 Old myocardial infarction; Z86.79 Personal history of other diseases of the circulatory system; Z88.2 Allergy status to sulfonamides; Z88.7 Allergy status to serum and vaccine; Z88.8 Allergy status to other drugs, medicaments and biological substances; Z79.82 Long term (current) use of aspirin; Z79.4 Long term (current) use of insulin; Z79.811 Long term (current) use of aromatase inhibitors; Z79.899 Other long term (current) drug therapy

== ENCOUNTER → 2022-09-24 | Outpatient (REF) | payer MEDICARE ==
[~2022-09-24] MED LIST changes: +LISI2.5T9
[2022-09-24 16:40] LABS: PERCENT SATURATION 27.1 % (13.2-45.0)
[2022-09-24 16:42] LABS: FERRITIN 503.7 NG/ML (7.3-270.7)
== END ==
LOC: M LAB REF 16:12
PROVIDERS: ATTEND Internal Medicine
DX: D50.9 Iron deficiency anemia, unspecified (principal)

== ENCOUNTER → 2025-03-28 | Outpatient (REF) | payer MEDICARE ==
[~2025-03-28] MED LIST changes: +FERR325T14 PO; -IRON325T9 PO; -ROSU10TA6 PO; +ROSU10TA61 PO
[2025-03-28 18:22] LABS: IRON (FE) 54.0 UG/DL (50-170); PERCENT SATURATION 19.9 % (13.2-45.0)
== END ==
LOC: M LAB REF 17:10
PROVIDERS: ATTEND Nurse Practitioner Family
DX: D50.9 Iron deficiency anemia, unspecified (principal)